=== PATIENT | female | born 1935 | race Caucasian/White ===

== ENCOUNTER → 2016-07-02 | Outpatient (CLI) | payer MEDICARE ==
[~2016-07-02] MED LIST: ACETAMINOPHEN-H1 TA2 PO; AGGRENOX (D1 CAPSULE PO; ALLEGRA ALLERG180 MG OR; AMLO2.5T PO; AMLODIPINE/BENA1 CA2 PO; ASPIRIN 81MG TA81 MG PO; B-COMPLEX-501 CAP PO; BRINTELLIX10 MG PO; BUSPAR 10MG TAB10 MG PO; BUSPAR 5MG TAB5 MG PO; BUSPIRONE HCL10 MG PO; CALCIUM 600600 MG PO; CALTRATE 600 +1 EACH PO; CARDIZEM CD120 MG PO; CEFDINIR 300MG300 MG PO; CIPROFLOXACIN500 MG PO; COUMADIN 2.5MG2.5 MG PO; COUMADIN 5MG TAB5 MG PO; COUMADIN4 MG PO; DETROL LA 2 MG C2 MG PO; FLAGYL500 MG PO; FOLIC ACID0.4 MG PO; HYDROCHLOROTHIA25 M1 PO; HYOSCYAMINE0.125 M4 SL; LASIX20 MG PO; LEVOCETIRIZINE D5 MG PO; LOTREL 10 MG-401 CAP PO; LOTREL 5 MG-201 CAP PO; LOVENOX40 MG/0.4 SC; MECLIZINE 25MG25 MG PO; MECLIZINE HYDRO25 MG PO; METOPROLOL SUC100 MG PO; METOPROLOL SUCC25 M2 PO; MULTI VITAMINS1 TAB PO; NATURE'S BLE1000 MCG PO; NEURONTIN100 MG OR; NORTRIPTYLINE H25 M1 PO; NYSTATIN SU60 ML/BOT PO; OMEGA 31000 MG PO; PRILOSEC OTC20 MG PO; PROZAC20 MG PO; RISPERDAL0.25 MG PO; RISPERIDONE0.5 M1 PO; SOTALOL 80MG TA80 MG PO; TIKOSYN0.125 MG PO; VITAMIN D1000 IU PO; WELLBUTRIN 75MG75 MG PO; WELLBUTRIN SR100 MG PO; XANAX 0.25MG0.25 MG PO; XARELTO20 MG PO; ZANTAC 150150 MG PO
[2016-07-02 20:57] LABS: BUN 32 mg/dL (7-18)
[2016-07-02 20:58] LABS: GFR (ESTIMATED) 43 ML/MIN (59-)
== END ==
LOC: LAB 16:19
PROVIDERS: Thoracic Surgery (Cardiothoracic Vascular Surgery)
DX: R91.1 Solitary pulmonary nodule (principal)

== ENCOUNTER 2017-01-31 10:55 | Day surgery (SDC) | payer MEDICARE ==
[~2017-01-31] VITALS: Ht 157.5 cm; Wt 74.4 kg
--- NOTE | 2017-01-31 12:40 | Operative Note ---
Upper GI Endoscopy Procedure date: 01/31/17 Date of : 37 Procedure:Upper GI Endoscopy Esophagogastroduodenoscopy with cold biopsies Indications: Mrs. Roldan is an 81-year-old female who is here for diagnostic/therapeutic upper endoscopy. 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 Her recent transaminases were normal. She does have a history of ischemic colitis in August 2012. She also has been hospitalized for atrial fibrillation. The patient has had worsened dysphagia and some globus sensation. She also has had some worsened reflux and has been on Zantac 150 mg by mouth twice a day. She has had bloating, belching, early satiety and very mild indigestion. She does take the fiber bowel regimen (MiraLAX plus Citrucel) daily. Performing Provider: Simón Garsia MD Referring Provider: Emiliano Alfredo M.D. Sedation: MAC sedation Procedure: Prior to the procedure, a history and physical exam was performed, and patients medications and allergies were reviewed. The risks and benefits of the procedure and the sedation options and risks were discussed with the patient. All questions were answered and informed consent was obtained. The patient was brought to the procedure room. Patient identification and proposed procedure were verified by the physician and the nurse. The patient was placed in a left lateral decubitus position and the scope was passed under direct vision. Throughout the procedure, the patient's blood pressure, pulse, and oxygen saturations were monitored continuously. The endoscope was introduced through the mouth, and advanced to the second part of duodenum. The upper GI endoscopy was accomplished without difficulty. The patient tolerated the procedure well. Findings: The scope was passed directly into the upper esophagus and advanced to the third portion of the duodenum. The post bulbar duodenum and duodenal bulb were normal with normal mucosa and conniventes. The scope was withdrawn through a normal duodenal bulb and pylorus into the stomach. There was very mild chronic gastritis and minimal portal gastropathy. The remainder of the antrum, body and fundus of the stomach were grossly normal. Upon retroflexion there was a 2 cm small hiatal hernia. There was a polyp in the cardia region of the stomach that was 6 mm and removed via cold biopsy. The scope was then withdrawn into the esophagus. There was evidence of grade A to B reflux esophagitis LA classification. There was no evidence of Pink's esophagus or stricturing. There were tertiary contractions and evidence of mild esophageal dysmotility. There was very faint esophageal varices. The entire esophagus was dilated to 60 [place]/20 mm with a TTS hydrostatic balloon. There was some resistance at the cricopharyngeus/upper esophageal sphincter. The remainder of the esophageal mucosa was normal. Immediate complications: None EBL (ml): 0 Impression: 1. 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 Grade AB reflux esophagitis (LA classification) with 2 cm hiatal hernia 3. Gastric fundic polyp 4. Very minor changes of portal hypertension/faint esophageal varices Recommendations: I will follow-up the biopsies. I would recommend addition of PPI therapies/ omeprazole. at 1240
[2017-01-31 16:01] VITALS: BP 169/82
== END 2017-01-31 13:50 | disposition home or self-care (01) ==
LOC: SDC 10:55
PROVIDERS: Internal Medicine Gastroenterology
PROC: 0D758ZZ Dilation of Esophagus, Via Natural or Artificial Opening Endoscopic (ICD-10-PCS; 2017-01-31)
PROC: 0DB68ZX Excision of Stomach, Via Natural or Artificial Opening Endoscopic, Diagnostic (ICD-10-PCS; principal; 2017-01-31 12:30)
DX: K22.4 Dyskinesia of esophagus (principal); K21.9 Gastro-esophageal reflux disease without esophagitis; K74.60 Unspecified cirrhosis of liver; K55.1 Chronic vascular disorders of intestine; K75.4 Autoimmune hepatitis; K44.9 Diaphragmatic hernia without obstruction or gangrene; K31.7 Polyp of stomach and duodenum; I85.00 Esophageal varices without bleeding; K76.6 Portal hypertension
CPT/HCPCS: C1726

== ENCOUNTER → 2017-03-28 | Outpatient (CLI) | payer MEDICARE ==
--- NOTE | 2017-03-28 19:24 | RADIOLOGY REPORT PS360 ---
PROCEDURE: 2-D M-mode and color Doppler study INDICATIONS FOR THE TEST: Chest pain COPD Heart Murmur Tobacco Smoking Palpitations Fatigue Syncope Edema HypertensionXDiabetes Mellitus Rheumatic Fever SOBXDOE Obesity HyperlipidemiaX Family History HD Additional History PAF,CAD,PACEMAKER PATIENT INFORMATION HEIGHT: 62 WEIGHT:170 GENDER: Female B/P:130/76 2-D/M-MODE INTERPRETATION: 2-D MEASUREMENTS OBSERVED VALUES IN CMS Right Ventricular Dimension (RVDd) 2.6 Interventricular Septum (Thickness)(IVsd) 1.0 Left Ventricular Internal Dimensions(LVIDd) 5.0 Left Ventricular Posterior Wall (Thickness)(LVPWd) .9 Aortic Root 2.7 Aortic Cusp Separation 1.5 Left Atrial Dimensions (LAD) 3.8 2D 1. Left atrium is mildly enlarged, left ventricle is normal size, there is mild concentric left ventricular hypertrophy, visually estimated ejection fraction 55% with no obvious regional wall motion abnormality. 2. The right atrium and right ventricle are normal size and contractility, there is catheter noted in the right atrium and right ventricle. Which is likely a pacemaker lead. 3. The aortic valve is thickened and calcified, leaflet continue to display mobility. 4. The mitral and tricuspid valve are minimally thickened. 5. The pulmonic valve is poorly visualized. 6. No significant pericardial effusion noted DOPPLER INTERROGATION: Doppler interrogation of the aortic, mitral and tricuspid valvular presence of mild aortic, mild mitral and tricuspid regurgitation, calculated right ventricular systolic pressure is 47 mmHg consistent with moderate pulmonary hypertension, diastolic parameters are inconclusive. CONCLUSION: 1. Mildly enlarged left atrium, normal left ventricular size, mild concentric left ventricular hypertrophy, visually estimated ejection fraction 55% with no obvious regional wall motion abnormality. 2. Mild aortic, mild mitral and tricuspid regurgitation, calculated right ventricular systolic pressure 47 mmHg consistent with moderate pulmonary hypertension. 3. No significant pericardial effusion noted.
== END ==
LOC: RT 14:52
DX: R06.02 Shortness of breath (principal); I48.0 Paroxysmal atrial fibrillation

== ENCOUNTER 2017-04-18 08:21 | Observation (INO) | payer MEDICARE ==
[~2017-04-18] VITALS: Ht 157.5 cm; Wt 79.5 kg
[2017-04-18 08:25] VITALS: BP 199/91
--- OUTSIDE RECORDS SUMMARY | 2017-04-18 08:48 | External Medical Summary Rpt | CCD ---
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 [facility] n 435.9 Transient [place] ischemic [facility] 558.9 Colitis [facility] Allergies, Adverse Reactions, Alerts Type Drug Allergy Adverse Reaction to Substance Substance Reaction Severity Cephalosporin Unknown Unknown Penicillin Unknown Unknown SULFA (sulfonamide) Unknown Unknown Cephalexin Unknown Unknown Erythromycin Unknown Unknown Codeine Unknown Unknown Penicillin G Unknown Unknown Trimethoprim Unknown Unknown Sulfamethoxazole Unknown Unknown Medications Na ND Rx Da Fi Fi Am Da Di Ph RX Ph St me C No te ll ll ou ys ag ar # ys at rm s nt no ma ic us Or Da si cy ia de te s n re d LO 00 12 0 No RA 64 -1 ZE 16 3- Lo PA 04 20 ng M 82 13 er 2 5 MG Ac /M ti L ve AL Sa 63 12 0 No li 80 -1 ne 70 3- Lo 10 20 ng Fl 07 13 er us 5 h Ac 10 ti ML ve Sy ri ng e FL 00 07 0 No UO 90 -2 XE 45 4- Lo TI 78 20 ng NE 56 13 er 1 HC Ac L ti 20 ve MG CA PS UL E SO 00 07 0 No DI 40 -2 UM 97 3- Lo 98 20 ng CH 30 13 er LO 9 RI Ac DE ti ve 0. 9% SO YENNI TI ON Sa 63 07 1 No li 80 -2 ne 70 3- Lo 10 20 ng Fl 07 13 er us 5 h Ac 10 ti ML ve Sy ri ng e AG 00 07 0 No GR 59 -2 EN 70 3- Lo OX 00 20 ng 16 13 er 25 0 Ac MG ti -2 ve 00 MG CA PS UL E TY 50 07 1 No LE 58 -2 NO 00 3- Lo L 45 20 ng EX 10 13 er -S 3 TR Ac ti 50 ve [address] ET HY [address] 73 -2 OC 90 3- Lo HL 12 20 ng OR 81 13 er OT 0 HI Ac AZ ti ID ve E 25 MG TA B LI 63 07 1 No SI 73 -2 NO 90 3- Lo DE 35 20 ng IL 01 13 er 0 20 Ac ti MG ve TA BL ET Al 68 07 1 No pr 08 -2 az 40 3- Lo ol 01 20 ng am 80 13 er 1 0. Ac 25 ti MG ve Ta bl et LE 50 07 1 No VA 45 -2 QU 80 3- Lo IN 92 20 ng 01 13 er 25 0 0 Ac MG ti ve TA BL ET TO 00 07 1 No DE 18 -2 OL 61 3- Lo 08 20 ng XL 83 13 er 9 25 Ac ti MG ve TA BL ET RI 50 07 1 No SP 45 -2 ER 80 3- Lo DA 30 20 ng L 10 13 er 0. 4 25 Ac ti MG ve TA BL ET BU 51 07 1 No SP 07 -2 IR 90 3- Lo ON 98 20 ng E 62 13 er HC 0 L Ac 10 ti ve MG TA BL ET PA 51 07 1 No NT 07 -2 OP 90 3- Lo RA 05 20 ng ZO 12 13 er LE 0 Ac SO ti D ve DR 40 MG TA B Po 00 02 1 No ta 24 -2 ss 50 5- Lo iu 05 20 ng m 80 13 er Ch 1 lo Ac ri ti de ve 20 ME Q Ta bl e TY 50 02 1 No LE 58 -2 NO 00 5- Lo L 45 20 ng EX 10 13 er -S 3 TR Ac ti 50 ve [address] ET Me 63 02 1 No tr 73 -2 on 90 5- Lo id 17 20 ng az 61 13 er ol 0 e Ac 50 ti 0M ve G Ta bl et ME 00 02 0 No TR 40 -2 ON 97 3- Lo ID 81 20 ng AZ 12 13 er OL 4 E Ac 50 ti 0 ve MG /1 00 ML SO 00 02 2 No DI 40 -2 UM 97 3- Lo 98 20 ng CH 30 13 er LO 9 RI Ac DE ti ve 0. 9% SO YENNI TI ON Sa 63 02 1 No li 80 -2 ne 70 3- Lo 10 20 ng Fl 07 13 er us 5 h Ac 10 ti ML ve Sy ri ng e GA [address] 27 -2 RO 00 3- Lo GR 44 20 ng AF 53 13 er IN 5 Ac 66 ti -1 ve 0 SO YENNI TI ON ON 00 02 0 No DA 64 -2 NS 16 3- Lo ET 08 20 ng RO 02 13 er N 5 HC Ac L ti 4 ve MG /2 ML AL Me 00 02 0 No th 00 -2 yl 90 3- Lo pr 19 20 ng ed 00 13 er ni 9 so Ac lo ti ne ve So d [facility] in a Mo 00 02 0 No rp 40 -2 hi 91 3- Lo ne 76 20 ng 23 13 er 2M 0 G/ Ac Ml ti ve Sy ri ng e Me 00 02 1 No th 00 -2 yl 90 3- Lo pr 11 20 ng ed 31 13 er ni 2 so Ac lo ti ne ve So d [facility] in a Mo 00 02 0 No rp 40 -2 hi 91 3- Lo ne 76 20 ng 23 13 er 2M 0 G/ Ac Ml ti ve Sy ri ng e AM 51 02 3 No LO 07 -2 DI 90 3- Lo PI 45 20 ng NE 12 13 er 0 BE Ac SY ti LA ve TE 5 MG TA B Fl 00 02 3 No uo 40 -2 xe 60 3- Lo ti 66 20 ng ne 36 13 er 2 20 Ac MG ti ve Ca ps ul e Al 68 02 3 No pr 08 -2 az 40 3- Lo ol 01 20 ng am 80 13 er 1 0. Ac 25 ti MG ve Ta bl et Hy [address] 07 -2 oc 90 3- Lo hl 04 20 ng or 92 13 er ot 0 hi Ac az ti id ve e 25 MG Ta bl e BU 51 02 3 No SP 07 -2 IR 90 3- Lo ON 98 20 ng E 62 13 er HC 0 L Ac 10 ti ve MG TA BL ET Mo 00 02 3 No rp 40 -2 hi 91 3- Lo ne 25 20 ng 83 13 er 4M 0 G/ Ac Ml ti ve Sy ri ng e TO 00 02 3 No DE 18 -2 OL 61 3- Lo 09 20 ng XL 00 13 er 5 50 Ac ti MG ve TA BL ET RI 50 02 3 No SP 45 -2 ER 80 3- Lo DA 30 20 ng L 20 13 er 0. 1 5 Ac MG ti ve TA BL ET Vital Signs 05-18-2013 11:20 Name Value Interpretat Reference Comment ion Range BP 94 mm[Hg] Diastolic BP Systolic 168 mm[Hg] Heart 70 /min Rate/Pulse O2% 98 % Respiratory 20 /min Rate 05-18-2013 10:09 Name Value Interpretat Reference Comment ion Range BP 73 mm[Hg] Diastolic BP Systolic 163 mm[Hg] Heart 78 /min Rate/Pulse Respiratory 18 /min Rate 05-18-2013 09:49 Name Value Interpretat Reference Comment ion Range O2% 99 % 12-27-2012 10:04 Name Value Interpretat Reference Comment ion Range Body 97.9 [degF] Temperature BP 76 mm[Hg] Diastolic BP Systolic 130 mm[Hg] Heart 112 /min Rate/Pulse O2% 96 % Respiratory 18 /min Rate 12-26-2012 06:41 Name Value Interpretat Reference Comment ion Range Height 157.48 cm Weight 73.936 kg Measured 12-26-2012 04:07 Name Value Interpretat Reference Comment ion Range Body 97.6 [degF] Temperature BP 66 mm[Hg] Diastolic BP Systolic 137 mm[Hg] Heart 105 /min Rate/Pulse O2% 96 % Respiratory 16 /min Rate Weight 00 [oz_av] Measured 12-11-2012 13:30 Name Value Interpretat Reference Comment ion Range Body 97.7 [degF] Temperature BP 68 mm[Hg] Diastolic BP Systolic 121 mm[Hg] Heart 111 /min Rate/Pulse O2% 96 % Respiratory 17 /min Rate 12-11-2012 12:20 Name Value Interpretat Reference Comment ion Range BP 97 mm[Hg] Diastolic BP Systolic 135 mm[Hg] Heart 111 /min Rate/Pulse O2% 95 % Respiratory 20 /min Rate 08-01-2012 09:17 Name Value Interpretat Reference Comment ion Range Body 98.4 [degF] Temperature BP 76 mm[Hg] Diastolic BP Systolic 137 mm[Hg] Heart 74 /min Rate/Pulse Respiratory 20 /min Rate 08-01-2012 04:00 Name Value Interpretat Reference Comment ion Range O2% 95 % 07-29-2012 09:00 Name Value Interpretat Reference Comment ion Range Height 157.48 cm Weight 72.576 kg Measured 07-29-2012 06:38 Name Value Interpretat Reference Comment ion Range Body 98.4 [degF] Temperature BP 81 mm[Hg] Diastolic BP Systolic 157 mm[Hg] Heart 84 /min Rate/Pulse O2% 94 % Respiratory 16 /min Rate Weight 0 [oz_av] Measured Results Labs Lab Lab Date Result Refere Interp Status Commen Order Detail nces retati t Range on aPTT PPP (06-08-2016 14:54) Comment: PTT = The equivalent PTT values for the therapeutic range of heparin levels at 0.3 to 0.5 U/ml are 45 to 60 seconds. aPTT 51.9 24.0-31 complet PPP 017 seconds .0 ed 14:54 PT PPP (06-08-2016 14:54) Comment: Therapeutic Ranges for INR:2.0-3.0 (PT 20-30) Comment: 2.5-3.5 (PT 25-34) INR PPP 1.36 complet 017 ed 14:54 PT PPP 15.0 9.6-11. complet 017 Seconds 5 ed 14:54 Bas Metab 2000 Pnl SerPl (06-08-2016 14:54) Comment: [employer] Guidelines Comment: Comment: Stage Description GFR Comment: 1 Normal or High 90+ Comment: 2 Mild decrease 60-89 Comment: 3 Moderate decrease 30-59 Comment: 4 Severe decrease 15-29 Comment: 5 Kidney failure <15 Calcium 9.5 8.7-10. complet 017 mg/dL 4 ed XXX-sCn 14:54 c CO2 26.0 20.0-31 complet SerPl-s 017 mmol/L .0 ed Cnc 14:54 Potassi 4.2 3.5-5.5 complet um 017 mmol/L ed Bld-sCn 14:54 c Sodium 03 138 132-146 complet Bld-sCn 017 mmol/L ed c 14:54 Creat 0.70 0.60-1. complet Bld-mCn 017 mg/dL 30 ed c 14:54 Anion 2 7.0 3.0-11. complet Gap3 017 mmol/L 0 ed SerPl-s 14:54 Cnc BUN/Cre 25.7 7.0-25. complet at 017 0 ed SerPl 14:54 GFR/BSA 81 >60 complet .pred 017 mL/min/ ed SerPl 14:54 1.73 MDRD-Ar VRat Chlorid 105 99-109 complet e 017 mmol/L ed SerPl-s 14:54 Cnc BUN 18 9-23 complet Bld-mCn 017 mg/dL ed c 14:54 Glucose 90 70-100 complet 017 mg/dL ed Bld-mCn 14:54 c Mg Ionized SerPl-mCnc (06-08-2016 14:54) Magnesi 2.3 1.3-2.7 complet um 017 mg/dL ed SerPl-m 14:54 Cnc Ca-I Bld-mCnc (06-08-2016 14:54) Ca-I 1.22 1.12-1. complet SerPl 017 mmol/L 32 ed ISE-mCn 14:54 c Hgb A1c Bld (05-28-2016 08:01) Comment: The [employer] recommends maintenance of Hemoglobin A1C at 7.0% or lower. Goals for Hemoglobin A1C reduction may need to be modified if hypoglycemia is a problem. Hgb A1c 5.10 % 4.80-5. complet MFr 016 60 ed Bld 08:01 Bas Metab 2000 Pnl SerPl (05-28-2016 08:01) Comment: [employer] Guidelines Comment: Comment: Stage Description GFR Comment: 1 Normal or High 90+ Comment: 2 Mild decrease 60-89 Comment: 3 Moderate decrease 30-59 Comment: 4 Severe decrease 15-29 Comment: 5 Kidney failure <15 Anion 6.0 3.0-11. complet Gap3 016 mmol/L 0 ed SerPl-s 08:01 Cnc BUN/Cre 26.3 7.0-25. complet at 016 0 ed SerPl 08:01 GFR/BSA 69 >60 complet .pred 016 mL/min/ ed SerPl 08:01 1.73 MDRD-Ar VRat Calcium 9.7 8.7-10. complet 016 mg/dL 4 ed XXX-sCn 08:01 c CO2 26.0 20.0-31 complet SerPl-s 016 mmol/L .0 ed Cnc 08:01 Chlorid 05-28-2 105 99-109 complet e 016 mmol/L ed SerPl-s 08:01 Cnc Potassi 23-2 4.0 3.5-5.5 complet um 016 mmol/L ed Bld-sCn 08:01 c Sodium 23-2 137 132-146 complet Bld-sCn 016 mmol/L ed c 08:01 Creat 23-2 0.80 0.60-1. complet Bld-mCn 016 mg/dL 30 ed c 08:01 BUN -23-2 21 9-23 complet Bld-mCn 016 mg/dL ed c 08:01 Glucose 05-28-2 97 70-100 complet 016 mg/dL ed Bld-mCn 08:01 c CBC (hemogram) Bld Auto (05-28-2016 08:01) Platele 23-2 260 150-450 complet t # Bld 016 10*3/mm ed Auto 08:01 3 PMV Bld 05-28-2 10.6 fL 6.0-12. complet Auto 016 0 ed 08:01 RDW RBC -23-2 46.2 fl 37.0-54 complet Auto 016 .0 ed 08:01 RDW RBC 23-2 13.3 % 11.3-14 complet 016 .5 ed Auto-Rt 08:01 o MCHC 23-2 33.7 32.0-36 complet RBC 016 g/dL .0 ed Auto-mC 08:01 nc MCH RBC 23-2 32.1 pg 27.0-31 complet Qn 016 .0 ed Auto 08:01 MCV RBC 23-2 95.2 fL 80.0-99 complet Auto 016 .0 ed 08:01 Hct VFr 23-2 41.2 % 34.5-44 complet Bld 016 .0 ed Auto 08:01 Hgb -23-2 13.9 11.5-15 complet Bld-mCn 016 g/dL .5 ed c 08:01 RBC # 12-23-2 4.33 3.89-5. complet Bld 016 10*6/mm 14 ed Auto 08:01 3 WBC -23-2 8.30 3.50-10 complet nRBC 016 10*3/mm .80 ed cor # 08:01 3 Bld COMPREHENSIVE METABOLIC PANEL (05-18-2013 09:30) Glucose 05-18-2 108 74-106 complet 013 mg/dL ed Bld-mCn 09:30 c BUN 05-18-2 14 7-18 complet Bld-mCn 013 mg/dL ed c 09:30 Creat 13-2 0.8 0.6-1.0 complet SerPl-m 013 mg/dL ed Cnc 09:30 Creat 05-18-2 68 50-200 complet Cl 013 ML/MIN ed predict 09:30 ed SerPl C-G-vRa te GFR/BSA 05-18-2 70 59- complet .pred 013 ML/MIN ed SerPl 09:30 Schwart z-vRate Sodium 05-18- 136 136-145 complet SerPl-s 013 mmoL/L ed Cnc 09:30 Potassi 05-18-2 3.6 3.5-5.1 complet um 013 mmoL/L ed SerPl-s 09:30 Cnc Chlorid 05-18-2 100 98-107 complet e 013 mmoL/L ed SerPl-s 09:30 Cnc CO2 05-18-2 28 21.0-32 complet SerPl-s 013 mmoL/L .0 ed Cnc 09:30 Calcium -13-2 9.3 8.5-10. complet 013 mg/dL 1 ed SerPl-m 09:30 Cnc Prot -13-2 7.7 6.4-8.2 complet SerPl-m 013 gm/dL ed Cnc 09:30 Albumin -13-2 4.0 3.4-5.0 complet 013 gm/dL ed SerPl-m 09:30 Cnc Globuli -13-2 3.7 1.3-3.2 complet n 013 gm/dL ed Ser-mCn 09:30 c Albumin -13-2 1.1 UNK 1.1-1.8 complet /Glob 013 ed SerPl-m 09:30 Rto Bilirub 13-2 0.4 0.2-1.0 complet 013 mg/dL ed SerPl-m 09:30 Cnc AST -13-2 23 U/L 15-37 complet SerPl-c 013 ed Cnc 09:30 ALT -13-2 49 U/L 30-65 complet SerPl-c 013 ed Cnc 09:30 ALP 12-13-2 88 U/L 50-136 complet SerPl-c 013 ed Cnc 09:30 PROTIME/INR (05-18-2013 09:30) PROTHRO 12-13-2 14.8 9.9-11. complet MBIN 013 SECONDS 6 ed TIME 09:30 INR Bld 12-13-2 1.38 0.9-1.1 complet 013 UNK ed 09:30 CBC with AUTO DIFF (05-18-2013 09:30) WBC # 12-13-2 5.2 4.8-10. complet Bld 013 K/MM3 8 ed Auto 09:30 RBC # 12-13-2 4.91 4.2-5.4 complet Bld 013 M/mm3 ed Auto 09:30 Hgb 12-13-2 15.2 12.2-16 complet Bld-mCn 013 g/dL .2 ed c 09:30 Hct Fr 12-13-2 43.4 % 37.0-47 complet Bld 013 .0 ed 09:30 MCV RBC 12-13-2 88.4 fl 82.2-97 complet 013 .8 ed 09:30 MCH RBC 12-13-2 31.0 pg 27-31.2 complet Qn 013 ed Auto 09:30 MEAN 12-13-2 35.1 31.8-35 complet CORPUSC 013 g/dl .4 ed ULAR 09:30 HGB CONC RDW RBC 12-13-2 14.4 % 11.5-17 complet Auto 013 .5 ed 09:30 Platele 12-13-2 245 142-424 complet t Bld 013 K/mm3 ed Ql 09:30 Manual MEAN 12-13-2 7.6 fl 7.4-10. complet PLATELE 013 4 ed T 09:30 VOLUME Granulo 12-13-2 69.7 % 37.0-80 complet cytes 013 .0 ed Fr Bld 09:30 Auto LYMPH % 12-13-2 20.3 % 10-50.0 complet 013 ed 09:30 Monocyt 12-13-2 6.5 % 1.7-9.3 complet es Fr 013 ed Bld 09:30 Auto Eosinop 12-13-2 3.0 % 0.1-12. complet hil Fr 013 0 ed Bld 09:30 Auto Basophi 12-13-2 0.5 % 0.1-2.0 complet ls Fr 013 ed Bld 09:30 Auto Granulo 12-13-2 3.6 1.8-7.8 complet cytes # 013 K/mm3 ed Bld 09:30 Auto Lymphoc 12-13-2 1.1 0.7-4.5 complet ytes Fr 013 K/mm3 ed Bld 09:30 Auto Monocyt 12-13-2 0.3 0.1-1.0 complet es # 013 K/mm3 ed Bld 09:30 Auto Eosinop 12-13-2 0.2 0.0-0.4 complet hil # 013 K/mm3 ed Bld 09:30 Auto Basophi 12-13-2 0.0 0-0.2 complet ls # 013 K/MM3 ed Bld 09:30 Auto BASIC METABOLIC PANEL (12-27-2012 05:10) Glucose 92 74-106 complet 013 mg/dL ed Bld-mCn 05:10 c BUN 20 7-18 complet Bld-mCn 013 mg/dL ed c 05:10 Creat 1.0 0.6-1.0 complet SerPl-m 013 mg/dL ed Cnc 05:10 ESTIMAT 55 50-200 complet ED 013 ML/MIN ed CREATIN 05:10 INE CLEARAN CE GFR 54 59- complet (ESTIMA 013 ML/MIN ed LUIS) 05:10 Sodium 138 136-145 complet SerPl-s 013 mmoL/L ed Cnc 05:10 Potassi 4.2 3.5-5.1 complet um 013 mmoL/L ed SerPl-s 05:10 Cnc Chlorid 102 98-107 complet e 013 mmoL/L ed SerPl-s 05:10 Cnc CO2 26 21.0-32 complet SerPl-s 013 mmoL/L .0 ed Cnc 05:10 Calcium 9.1 8.5-10. complet 013 mg/dL 1 ed SerPl-m 05:10 Cnc Albumin SerPl-mCnc (12-27-2012 05:10) Albumin 3.7 3.4-5.0 complet 013 gm/dL ed SerPl-m 05:10 Cnc CBC with AUTO DIFF (12-27-2012 05:10) WBC # 07-24-2 6.2 4.8-10. complet Bld 013 K/MM3 8 ed Auto 05:10 RBC # -24-2 4.82 4.2-5.4 complet Bld 013 M/mm3 ed Auto 05:10 Hgb 24-2 14.1 12.2-16 complet Bld-mCn 013 g/dL .2 ed c 05:10 Hct Fr 12-27-2 42.3 % 37.0-47 complet Bld 013 .0 ed 05:10 MCV RBC 24-2 87.8 fl 82.2-97 complet 013 .8 ed 05:10 MCH RBC 12-27-2 29.1 pg 27-31.2 complet Qn 013 ed Auto 05:10 MEAN 12-27-2 33.2 31.8-35 complet CORPUSC 013 g/dl .4 ed ULAR 05:10 HGB CONC RDW RBC 12-27-2 13.3 % 11.5-17 complet Auto 013 .5 ed 05:10 Platele -24-2 226 142-424 complet t Bld 013 K/mm3 ed Ql 05:10 Manual MEAN 12-27-2 8.0 fl 7.4-10. complet PLATELE 013 4 ed T 05:10 VOLUME Granulo 24-2 63.5 % 37.0-80 complet cytes 013 .0 ed Fr Bld 05:10 Auto LYMPH % 24-2 22.4 % 10-50.0 complet 013 ed 05:10 Monocyt -24-2 9.4 % 1.7-9.3 complet es Fr 013 ed Bld 05:10 Auto Eosinop -24-2 4.2 % 0.1-12. complet hil Fr 013 0 ed Bld 05:10 Auto Basophi -24-2 0.5 % 0.1-2.0 complet ls Fr 013 ed Bld 05:10 Auto Granulo 07-24-2 4.0 1.8-7.8 complet cytes # 013 K/mm3 ed Bld 05:10 Auto Lymphoc -24-2 1.4 0.7-4.5 complet ytes Fr 013 K/mm3 ed Bld 05:10 Auto Monocyt 07-24-2 0.6 0.1-1.0 complet es # 013 K/mm3 ed Bld 05:10 Auto Eosinop 12-27-2 0.3 0.0-0.4 complet hil # 013 K/mm3 ed Bld 05:10 Auto Basophi 12-27-2 0.0 0-0.2 complet ls # 013 K/MM3 ed Bld 05:10 Auto COMPREHENSIVE METABOLIC PANEL (12-26-2012 05:00) Glucose 99 74-106 complet 013 mg/dL ed Bld-mCn 05:00 c BUN 22 7-18 complet Bld-mCn 013 mg/dL ed c 05:00 Creat 1.1 0.6-1.0 complet SerPl-m 013 mg/dL ed Cnc 05:00 ESTIMAT 50 50-200 complet ED 013 ML/MIN ed CREATIN 05:00 INE CLEARAN CE GFR 48 59- complet (ESTIMA 013 ML/MIN ed LUIS) 05:00 Sodium 136 136-145 complet SerPl-s 013 mmoL/L ed Cnc 05:00 Potassi 4.0 3.5-5.1 complet um 013 mmoL/L ed SerPl-s 05:00 Cnc Chlorid 103 98-107 complet e 013 mmoL/L ed SerPl-s 05:00 Cnc CO2 25 21.0-32 complet SerPl-s 013 mmoL/L .0 ed Cnc 05:00 Calcium 9.0 8.5-10. complet 013 mg/dL 1 ed SerPl-m 05:00 Cnc Prot 6.6 6.4-8.2 complet SerPl-m 013 gm/dL ed Cnc 05:00 Albumin 3.5 3.4-5.0 complet 013 gm/dL ed SerPl-m 05:00 Cnc Globuli 3.1 1.3-3.2 complet n 013 gm/dL ed Ser-mCn 05:00 c Albumin 1.1 UNK 1.1-1.8 complet /Glob 013 ed SerPl-m 05:00 Rto Bilirub 0.3 0.2-1.0 complet 013 mg/dL ed SerPl-m 05:00 Cnc AST 14 U/L 15-37 complet SerPl-c 013 ed Cnc 05:00 ALT 33 U/L 30-65 complet SerPl-c 013 ed Cnc 05:00 ALP 131 U/L 50-136 complet SerPl-c 013 ed Cnc 05:00 LIPID PROFILE (12-26-2012 05:00) Cholest 12-26-2 193 Less complet 013 mg/dL than ed SerPl-m 05:00 200 Cnc HDLc 33.0 40-60 complet SerPl-m 013 MG/DL ed Cnc 05:00 LDLc 107.2 0-130 complet SerPl 013 mg/dL ed Calc-mC 05:00 nc VLDL 52.8 0-40 complet CHOLEST 013 UNK ed CÉSAR 05:00 Trigl 264 30-200 complet SerPl-m 013 mg/dL ed Cnc 05:00 PROTIME/INR (12-26-2012 05:00) PROTHRO 12-26-2 10.7 9.9-11. complet MBIN 013 SECONDS 6 ed TIME 05:00 INR Bld 1.00 0.9-1.1 complet 013 UNK ed 05:00 ACT PARTIAL THROMBO TIME (12-26-2012 05:00) ACT 27.2 25.3-32 complet PARTIAL 013 SECONDS .0 ed 05:00 THROMBO TIME CBC with AUTO DIFF (12-26-2012 05:00) WBC # 12-26-2 5.1 4.8-10. complet Bld 013 K/MM3 8 ed Auto 05:00 RBC # 12-26-2 4.54 4.2-5.4 complet Bld 013 M/mm3 ed Auto 05:00 Hgb 13.2 12.2-16 complet Bld-mCn 013 g/dL .2 ed c 05:00 Hct Fr 39.9 % 37.0-47 complet Bld 013 .0 ed 05:00 MCV RBC 88.0 fl 82.2-97 complet 013 .8 ed 05:00 MCH RBC 07-23-2 29.2 pg 27-31.2 complet Qn 013 ed Auto 05:00 MEAN 07-23-2 33.1 31.8-35 complet CORPUSC 013 g/dl .4 ed ULAR 05:00 HGB CONC RDW RBC 0723-2 13.2 % 11.5-17 complet Auto 013 .5 ed 05:00 Platele 07-23-2 204 142-424 complet t Bld 013 K/mm3 ed Ql 05:00 Manual MEAN 23-2 8.2 fl 7.4-10. complet PLATELE 013 4 ed T 05:00 VOLUME Granulo 07-23-2 56.3 % 37.0-80 complet cytes 013 .0 ed Fr Bld 05:00 Auto LYMPH % 07-23-2 27.5 % 10-50.0 complet 013 ed 05:00 Monocyt 07-23-2 10.2 % 1.7-9.3 complet es Fr 013 ed Bld 05:00 Auto Eosinop 07-23-2 5.3 % 0.1-12. complet hil Fr 013 0 ed Bld 05:00 Auto Basophi 07-23-2 0.6 % 0.1-2.0 complet ls Fr 013 ed Bld 05:00 Auto Granulo 07-23-2 2.9 1.8-7.8 complet cytes # 013 K/mm3 ed Bld 05:00 Auto Lymphoc 07-23-2 1.4 0.7-4.5 complet ytes Fr 013 K/mm3 ed Bld 05:00 Auto Monocyt 07-23-2 0.5 0.1-1.0 complet es # 013 K/mm3 ed Bld 05:00 Auto Eosinop 07-23-2 0.3 0.0-0.4 complet hil # 013 K/mm3 ed Bld 05:00 Auto Basophi 07-23-2 0.0 0-0.2 complet ls # 013 K/MM3 ed Bld 05:00 Auto BASIC METABOLIC PANEL (08-01-2012 06:25) Glucose 86 74-106 complet 013 mg/dL ed Bld-mCn 06:25 c BUN 16 7-18 complet Bld-mCn 013 mg/dL ed c 06:25 Creat 02-26-2 0.8 0.6-1.0 complet SerPl-m 013 mg/dL ed Cnc 06:25 ESTIMAT 08-01-2 70 50-200 complet ED 013 ML/MIN ed CREATIN 06:25 INE CLEARAN CE GFR 70 59- complet (ESTIMA 013 ML/MIN ed LUIS) 06:25 Sodium 08-01-2 138 136-145 complet SerPl-s 013 mmoL/L ed Cnc 06:25 Potassi 2 3.0 3.5-5.1 complet um 013 mmoL/L ed SerPl-s 06:25 Cnc Chlorid 102 98-107 complet e 013 mmoL/L ed SerPl-s 06:25 Cnc CO2 2 30 21.0-32 complet SerPl-s 013 mmoL/L .0 ed Cnc 06:25 Calcium 08-01-2 8.4 8.5-10. complet 013 mg/dL 1 ed SerPl-m 06:25 Cnc CBC with AUTO DIFF (08-01-2012 06:25) WBC # --2 10.9 4.8-10. complet Bld 013 K/MM3 8 ed Auto 06:25 RBC # 08-01-2 4.33 4.2-5.4 complet Bld 013 M/mm3 ed Auto 06:25 Hgb 08-01-2 12.5 12.2-16 complet Bld-mCn 013 g/dL .2 ed c 06:25 Hct Fr 08-01-2 37.5 % 37.0-47 complet Bld 013 .0 ed 06:25 MCV RBC 08-01-2 86.6 fl 82.2-97 complet 013 .8 ed 06:25 MCH RBC 08-01-2 29.0 pg 27-31.2 complet Qn 013 ed Auto 06:25 MEAN 08-01-2 33.5 31.8-35 complet CORPUSC 013 g/dl .4 ed ULAR 06:25 HGB CONC RDW RBC 08-01-2 13.2 % 11.5-17 complet Auto 013 .5 ed 06:25 Platele 08-01-2 199 142-424 complet t Bld 013 K/mm3 ed Ql 06:25 Manual MEAN 08-01-2 8.0 fl 7.4-10. complet PLATELE 013 4 ed T 06:25 VOLUME Granulo 02-26-2 77.2 % 37.0-80 complet cytes 013 .0 ed Fr Bld 06:25 Auto LYMPH % 02-26-2 12.7 % 10-50.0 complet 013 ed 06:25 Monocyt 02-26-2 9.1 % 1.7-9.3 complet es Fr 013 ed Bld 06:25 Auto Eosinop 02-26-2 0.8 % 0.1-12. complet hil Fr 013 0 ed Bld 06:25 Auto Basophi 02-26-2 0.1 % 0.1-2.0 complet ls Fr 013 ed Bld 06:25 Auto Granulo 02-26-2 8.4 1.8-7.8 complet cytes # 013 K/mm3 ed Bld 06:25 Auto Lymphoc -26-2 1.4 0.7-4.5 complet ytes Fr 013 K/mm3 ed Bld 06:25 Auto Monocyt 02-26-2 1.0 0.1-1.0 complet es # 013 K/mm3 ed Bld 06:25 Auto Eosinop -26-2 0.1 0.0-0.4 complet hil # 013 K/mm3 ed Bld 06:25 Auto Basophi 02-26-2 0.0 0-0.2 complet ls # 013 K/MM3 ed Bld 06:25 Auto BASIC METABOLIC PANEL (07-31-2012 06:48) Glucose 89 74-106 complet 013 mg/dL ed Bld-mCn 06:48 c BUN 2 17 7-18 complet Bld-mCn 013 mg/dL ed c 06:48 Creat 07-31-2 0.9 0.6-1.0 complet SerPl-m 013 mg/dL ed Cnc 06:48 ESTIMAT 07-31-2 62 50-200 complet ED 013 ML/MIN ed CREATIN 06:48 INE CLEARAN CE GFR 61 59- complet (ESTIMA 013 ML/MIN ed LUIS) 06:48 Sodium 07-31- 138 136-145 complet SerPl-s 013 mmoL/L ed Cnc 06:48 Potassi 07-31-2 3.1 3.5-5.1 complet um 013 mmoL/L ed SerPl-s 06:48 Cnc Chlorid 104 98-107 complet e 013 mmoL/L ed SerPl-s 06:48 Cnc CO2 2 28 21.0-32 complet SerPl-s 013 mmoL/L .0 ed Cnc 06:48 Calcium 07-31-2 8.4 8.5-10. complet 013 mg/dL 1 ed SerPl-m 06:48 Cnc CBC with AUTO DIFF (07-31-2012 06:48) WBC # 02-25-2 16.4 4.8-10. complet Bld 013 K/MM3 8 ed Auto 06:48 RBC # 25-2 4.48 4.2-5.4 complet Bld 013 M/mm3 ed Auto 06:48 Hgb 07-31-2 13.0 12.2-16 complet Bld-mCn 013 g/dL .2 ed c 06:48 Hct Fr 38.5 % 37.0-47 complet Bld 013 .0 ed 06:48 MCV RBC 2 86.0 fl 82.2-97 complet 013 .8 ed 06:48 MCH RBC 07-31-2 29.0 pg 27-31.2 complet Qn 013 ed Auto 06:48 MEAN 2 33.7 31.8-35 complet CORPUSC 013 g/dl .4 ed ULAR 06:48 HGB CONC RDW RBC 07-31-2 13.3 % 11.5-17 complet Auto 013 .5 ed 06:48 Platele 07-31-2 194 142-424 complet t Bld 013 K/mm3 ed Ql 06:48 Manual MEAN 2 7.8 fl 7.4-10. complet PLATELE 013 4 ed T 06:48 VOLUME Granulo 07-31-2 84.8 % 37.0-80 complet cytes 013 .0 ed Fr Bld 06:48 Auto LYMPH % 07-31-2 8.2 % 10-50.0 complet 013 ed 06:48 Monocyt 25-2 6.7 % 1.7-9.3 complet es Fr 013 ed Bld 06:48 Auto Eosinop -25-2 0.3 % 0.1-12. complet hil Fr 013 0 ed Bld 06:48 Auto Basophi 07-31-2 0.0 % 0.1-2.0 complet ls Fr 013 ed Bld 06:48 Auto Granulo 2 13.9 1.8-7.8 complet cytes # 013 K/mm3 ed Bld 06:48 Auto Lymphoc 2 1.4 0.7-4.5 complet ytes Fr 013 K/mm3 ed Bld 06:48 Auto Monocyt 07-31-2 1.1 0.1-1.0 complet es # 013 K/mm3 ed Bld 06:48 Auto Eosinop 07-31-2 0.1 0.0-0.4 complet hil # 013 K/mm3 ed Bld 06:48 Auto Basophi 07-31-2 0.0 0-0.2 complet ls # 013 K/MM3 ed Bld 06:48 Auto C dif Tox A+B Stl Ql (07-30-2012 13:50) C dif NOT NOT complet Tox A+B 013 DETECTE DETECTE ed Stl Ql 13:50 D BASIC METABOLIC PANEL (07-30-2012 06:30) Glucose 139 74-106 complet 013 mg/dL ed Bld-mCn 06:30 c BUN 13 7-18 complet Bld-mCn 013 mg/dL ed c 06:30 Creat 0.8 0.6-1.0 complet SerPl-m 013 mg/dL ed Cnc 06:30 ESTIMAT 07-30- 70 50-200 complet ED 013 ML/MIN ed CREATIN 06:30 INE CLEARAN CE GFR 70 59- complet (ESTIMA 013 ML/MIN ed LUIS) 06:30 Sodium 07-30-2 138 136-145 complet SerPl-s 013 mmoL/L ed Cnc 06:30 Potassi 07-30-2 3.6 3.5-5.1 complet um 013 mmoL/L ed SerPl-s 06:30 Cnc Chlorid 07-30- 102 98-107 complet e 013 mmoL/L ed SerPl-s 06:30 Cnc CO2 07-30-2 26 21.0-32 complet SerPl-s 013 mmoL/L .0 ed Cnc 06:30 Calcium 07-30-2 8.4 8.5-10. complet 013 mg/dL 1 ed SerPl-m 06:30 Cnc CBC with AUTO DIFF (07-30-2012 06:30) WBC # 02-24-2 14.3 4.8-10. complet Bld 013 K/MM3 8 ed Auto 06:30 RBC # 02-24-2 4.54 4.2-5.4 complet Bld 013 M/mm3 ed Auto 06:30 Hgb -24-2 13.0 12.2-16 complet Bld-mCn 013 g/dL .2 ed c 06:30 Hct Fr 24-2 39.2 % 37.0-47 complet Bld 013 .0 ed 06:30 MCV RBC 24-2 86.2 fl 82.2-97 complet 013 .8 ed 06:30 MCH RBC 07-30-2 28.6 pg 27-31.2 complet Qn 013 ed Auto 06:30 MEAN 07-30-2 33.2 31.8-35 complet CORPUSC 013 g/dl .4 ed ULAR 06:30 HGB CONC RDW RBC 07-30-2 13.4 % 11.5-17 complet Auto 013 .5 ed 06:30 Platele -24-2 182 142-424 complet t Bld 013 K/mm3 ed Ql 06:30 Manual MEAN 24-2 8.1 fl 7.4-10. complet PLATELE 013 4 ed T 06:30 VOLUME Granulo -24-2 92.1 % 37.0-80 complet cytes 013 .0 ed Fr Bld 06:30 Auto LYMPH % -24-2 4.6 % 10-50.0 complet 013 ed 06:30 Monocyt 02-24-2 3.2 % 1.7-9.3 complet es Fr 013 ed Bld 06:30 Auto Eosinop 02-24-2 0.2 % 0.1-12. complet hil Fr 013 0 ed Bld 06:30 Auto Basophi 02-24-2 0.0 % 0.1-2.0 complet ls Fr 013 ed Bld 06:30 Auto Granulo 02-24-2 13.2 1.8-7.8 complet cytes # 013 K/mm3 ed Bld 06:30 Auto Lymphoc 02-24-2 0.7 0.7-4.5 complet ytes Fr 013 K/mm3 ed Bld 06:30 Auto Monocyt 02-24-2 0.5 0.1-1.0 complet es # 013 K/mm3 ed Bld 06:30 Auto Eosinop -24-2 0.0 0.0-0.4 complet hil # 013 K/mm3 ed Bld 06:30 Auto Basophi 24-2 0.0 0-0.2 complet ls # 013 K/MM3 ed Bld 06:30 Auto ESR Bld Qn 15M (07-30-2012 06:30) ESR Bld 07-30-2 10 0-30 complet Qn 15M 013 mm/hr ed 06:30 OCCULT BLOOD (07-29-2012 07:25) Hemocul 07-29-2 POSITIV NEG complet t sp1 013 E ed Stl Ql 07:25 COMPREHENSIVE METABOLIC PANEL (07-29-2012 06:50) Glucose 07-29-2 144 74-106 complet 013 mg/dL ed Bld-mCn 06:50 c BUN 07-29-2 25 7-18 complet Bld-mCn 013 mg/dL ed c 06:50 Creat 07-29-2 1.4 0.6-1.0 complet SerPl-m 013 mg/dL ed Cnc 06:50 ESTIMAT 23-2 38 50-200 complet ED 013 ML/MIN ed CREATIN 06:50 INE CLEARAN CE GFR 07-29-2 37 59- complet (ESTIMA 013 ML/MIN ed LUIS) 06:50 Sodium 23-2 136 136-145 complet SerPl-s 013 mmoL/L ed Cnc 06:50 Potassi 23-2 3.8 3.5-5.1 complet um 013 mmoL/L ed SerPl-s 06:50 Cnc Chlorid 07-29-2 101 98-107 complet e 013 mmoL/L ed SerPl-s 06:50 Cnc CO2 23-2 24 21.0-32 complet SerPl-s 013 mmoL/L .0 ed Cnc 06:50 Calcium -23-2 9.5 8.5-10. complet 013 mg/dL 1 ed SerPl-m 06:50 Cnc Prot -23-2 7.7 6.4-8.2 complet SerPl-m 013 gm/dL ed Cnc 06:50 Albumin -23-2 4.0 3.4-5.0 complet 013 gm/dL ed SerPl-m 06:50 Cnc Globuli 02-23-2 3.7 1.3-3.2 complet n 013 gm/dL ed Ser-mCn 06:50 c Albumin 02-23-2 1.1 UNK 1.1-1.8 complet /Glob 013 ed SerPl-m 06:50 Rto Bilirub 02-23-2 0.5 0.2-1.0 complet 013 mg/dL ed SerPl-m 06:50 Cnc AST 02-23-2 19 U/L 15-37 complet SerPl-c 013 ed Cnc 06:50 ALT 02-23-2 37 U/L 30-65 complet SerPl-c 013 ed Cnc 06:50 ALP 02-23-2 114 U/L 50-136 complet SerPl-c 013 ed Cnc 06:50 Amylase SerPl-cCnc (07-29-2012 06:50) Amylase 02-23-2 117 U/L 25-115 complet 013 ed SerPl-c 06:50 Cnc LIPASE (07-29-2012 06:50) LIPASE 02-23-2 132 U/L 73-393 complet 013 ed 06:50 CBC with AUTO DIFF (07-29-2012 06:50) WBC # 02-23-2 11.4 4.8-10. complet Bld 013 K/MM3 8 ed Auto 06:50 RBC # 02-23-2 5.19 4.2-5.4 complet Bld 013 M/mm3 ed Auto 06:50 Hgb 02-23-2 15.0 12.2-16 complet Bld-mCn 013 g/dL .2 ed c 06:50 Hct Fr 02-23-2 44.7 % 37.0-47 complet Bld 013 .0 ed 06:50 MCV RBC 02-23-2 86.1 fl 82.2-97 complet 013 .8 ed 06:50 MCH RBC 02-23-2 29.0 pg 27-31.2 complet Qn 013 ed Auto 06:50 MEAN 02-23-2 33.6 31.8-35 complet CORPUSC 013 g/dl .4 ed ULAR 06:50 HGB CONC RDW RBC 02-23-2 13.5 % 11.5-17 complet Auto 013 .5 ed 06:50 Platele 02-23-2 282 142-424 complet t Bld 013 K/mm3 ed Ql 06:50 Manual MEAN 02-23-2 7.6 fl 7.4-10. complet PLATELE 013 4 ed T 06:50 VOLUME Granulo 02-23-2 86.7 % 37.0-80 complet cytes 013 .0 ed Fr Bld 06:50 Auto LYMPH % 02-23-2 8.1 % 10-50.0 complet 013 ed 06:50 Monocyt 02-23-2 4.5 % 1.7-9.3 complet es Fr 013 ed Bld 06:50 Auto Eosinop 02-23-2 0.6 % 0.1-12. complet hil Fr 013 0 ed Bld 06:50 Auto Basophi 02-23-2 0.1 % 0.1-2.0 complet ls Fr 013 ed Bld 06:50 Auto Granulo 02-23-2 9.9 1.8-7.8 complet cytes # 013 K/mm3 ed Bld 06:50 Auto Lymphoc 02-23-2 0.9 0.7-4.5 complet ytes Fr 013 K/mm3 ed Bld 06:50 Auto Monocyt 02-23-2 0.5 0.1-1.0 complet es # 013 K/mm3 ed Bld 06:50 Auto Eosinop 02-23-2 0.1 0.0-0.4 complet hil # 013 K/mm3 ed Bld 06:50 Auto Basophi 02-23-2 0.0 0-0.2 complet ls # 013 K/MM3 ed Bld 06:50 Auto Encounters Encounter Start End Date Code Location Performer Type Date Emergency ALBERTO FAUSTIN DO (ER) 3 09:42 3 11:26 [facility] Inpatient CINDY Alfredo MD ([place]) 3 04:47 3 09:30 [facility] Emergency ALBERTO Cheek MD (ER) 3 11:45 3 13:31 [facility] Inpatient CINDY Alfredo MD ([place]) 3 06:54 3 09:40 [facility]
--- OUTSIDE RECORDS SUMMARY | 2017-04-18 08:48 | External Medical Summary Rpt | CCD ---
Author Author , RACHELLE BUSH Address Unknown Phone [email or web address] Care Team Providers Care Die Fitter Name Role Phone [facility] Unavailable Unavailable Hospital, [facility] Emiliano Alfredo MD, Unavailable Unavailable Emiliano Alfredo MD Purpose Continuity of Care Document - 07-29-2012 through 2016 Problems Code Diagnosis DOS Provider Status 272.1 [facility] [place] [facility]1 Benign [facility] hypertensio [facility] n 435.9 Transient [place] ischemic [facility] 558.9 Colitis [facility] Allergies, Adverse Reactions, Alerts Type Drug Allergy [...] SI 73 -2 NO 90 3- Lo PA 35 20 ng [place] 01 13 er [...] BL ET TO 00 07 1 No PA 18 -2 OL 61 3- Lo 08 [...] ng e TO 00 02 3 No PA 18 -2 OL 61 3- Lo 09 [...] Hgb A1c Bld (05-28-2016 08:01) Comment: The [place] [employer] recommends maintenance of Hemoglobin A1C [...] FAUSTIN DO (ER) 3 09:42 3 11:26 [facility] Inpatient CINDY Alfredo MD ([place]) 3 04:47 3 09:30 [facility] Emergency ALBERTO Cheek MD (ER) 3 11:45 3 13:31 [facility] Inpatient CINDY Alfredo MD ([place]) 3 06:54 3 09:40 [facility]
--- OUTSIDE RECORDS SUMMARY | 2017-04-18 08:50 | External Medical Summary Rpt ---
Author Author RACHELLE Krause, RACHELLE [employer] Organization [employer] Address Unknown Phone Unavailable Results Urea nitrogen [Mass/volume] in Serum or Plasma Observa Value Referen Units Interpr Notes Date tion ce etation Range Urea 7 - 18 mg/dL High No Nov 22 nitrogen informati 2016 9:27 [Mass/vol on in AM ume] in source Serum or data Plasma CREATININE Observa Value Referen Units Interpr Notes Date tion ce etation Range Creatinin 0.55 - mg/dL Normal No Nov 22 e 1.02 informati 2016 9:27 [Mass/vol on in AM ume] in source Serum or data Plasma Estimated 59- ML/MIN Low REFERENCE Nov 22 RANGE: 2017 9:27 glomerula >60 AM r ML/MIN/1. filtratio 73 SQUARE n rate METERSIf (GF this patient is -A merican, then multiply theresult by 1.210.
--- OUTSIDE RECORDS SUMMARY | 2017-04-18 08:50 | External Medical Summary Rpt | CCD ---
Author Author , RACHELLE BUSH Address Unknown Phone [email or web address] Immunization Name Date Rout CVX Reac Dose Comm Prov Is Faci e tion ent ider Refu lity Give sed n Zost 07-2 121 0.65 Hist WALM No WALM er 1-20 mL oric ART5 ART5 17 al 91 91 Info rmat ion - Sour ce Unsp ecif ied Infl 09-1 Subc 140 999 Hist D203 No D203 uenz 4-20 utan oric 45 45 a, 16 eous al P-Fr Info ee rmat ion - Sour ce Unsp ecif ied
--- OUTSIDE RECORDS SUMMARY | 2017-04-18 08:50 | External Medical Summary Rpt ---
Author Author RACHELLE Krause, RACHELLE pic5 Organization [employer] Address Unknown Phone Unavailable [...]
--- OUTSIDE RECORDS SUMMARY | 2017-04-18 08:50 | External Medical Summary Rpt | CCD ---
Author Author , RACHELLE BUSH Address Unknown Phone [email or web address] Immunization Name Date Rout CVX Reac Dose [...]
--- OUTSIDE RECORDS SUMMARY | 2017-04-18 08:50 | External Medical Summary Rpt | CCD ---
Author Author [employer] Organization [employer] Address Unknown Phone Unavailable Purpose Continuity of Care Document - through 2016
--- NOTE | 2017-04-18 08:55 | Emergency Room Report ---
History of Present Illness Time Seen by 0842 Presenting Problem in Triage Pt arrived:Wheelchair Presenting Problem:PT C/O SOA YESTERDAY MORNING THAT GOT BETTER THROUGHOUT THE DAY YESTERDAY BUT ADVISES THAT IT GOT WORSE THROUGH THE NIGHT AND IS NOW VERY SOA. PT ADVISES SHE WEARS O2 AT NIGHT FOR SLEEP APNEA. 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 N Clinical Suspician of Infection? N Mental Status: 1 - Regular (Normal Baseline) Sepsis Risk:Low Sepsis Risk Have you (or family members/close friends) recently traveled outside the [place]? N If Yes, where/when: Have you had exposure to infectious disease within the past month? N TB? Other? Specify: Source patient, RN notes reviewed, family, RN/MD Exam Limitations no limitations Comment This is an 81-year-old lady arriving to the emergency room for evaluation of her shortness of breath, onset yesterday, associated with exercise and laying down. Patient symptoms have gotten worse over the night, with her being oxygen dependent due to sleep apnea. For the past one week's patient has been having a nonproductive cough, with clear nasal drainage. Shee denies any recent travel or exposure to sick contacts otherwise. ALLERGIES Coded Allergies: Cephalosporins (01/25/17) Penicillins (01/25/17) codeine (01/25/17) erythromycin base (01/25/17) sulfamethoxazole (From Bactrim) (01/25/17) trimethoprim (From Bactrim) (01/25/17) Home Medications Reported Medications Apixaban (Eliquis) 5 MG PO BID #60 Valsartan (Valsartan 160MG) 320 MG PO DAILY Tolterodine Tartrate (Detrol La) 4 MG PO DAILY Omeprazole (Omeprazole 40MG) 40 MG PO DAILY Metoprolol Tartrate (Metoprolol 100MG) 100 MG PO BID Metoclopramide Hydrochloride (Metoclopramide HCl) 5 MG PO ACHS SOTALOL HCL (Sotalol) 80 MG PO BID Furosemide (Lasix) 40 MG PO DAILYP PRN EXCESS FLUID Amlodipine Besylate 2.5 MG PO DAILY DILTIAZEM HCL (Diltiazem 24HR ER) 90 MG PO DAILY NYSTATIN (Nystatin Susp 100,000 Units/Ml 60ML) 5 ML PO QID Gabapentin (Neurontin) 100 MG OR BID FEXOFENADINE HCL (Liz Allergy) 180 MG OR QHS LEVOCETIRIZINE DIHYDROCHLORIDE (Levocetirizine Dihydrochloride) 5 MG PO DAILY History Medical History General CAD? No Angina: Yes IN: Yes Hypertension? Yes Hyperlipidemia? Yes CHF? No DVT? No PE? No COPD? No Asthma? Yes Anemia? No GERD? No Gastric ulcers? No GI Bleed? No Hernia? No Thyroid Problems? No Hypothyroidism? No CVA? Yes Seizures? No Diabetes? No Renal Insuffiency? No End Stage Renal Disease? No UTI? No Stones? No BPH? No GB Disease: No Nephritic Syndrome? No Asplenia? No Hepatitis? No Sickle Cell Disease? No Arthritis? No Migraines? No Cataracts? Yes Glaucoma? No MRSA? No HIV? No TB? No Anxiety? No Depression? No Cancer? No More? No Immunization Hx DT/Tetanus UNKNOWN Flu 2011-FSN Pneumonia Received In Past Surgical Hx Previous Surgery?Y Tonsils Appendix ANTWON OOPHORECTOMY [place]. BREAST BIOPSIES CARDIAC STENT PLACEMENT PACEMAKER 2005 PULMONARY VEIN ABLASION BILATERAL CATARACTS COLONOSCOPY A&P REPAIR Family History Family Hx Diabetes Yes CAD Yes Hypertension Yes Hyperlipidemia No Cancer Yes TB No Social History Smoking Hx Smoker: Former Smoker Tobacco: Yes Type Cigarettes Packs/day N/A Alcohol Alcohol: No Review of Systems All Other Systems Reviewed and Negative Respiratory shortness of breath Physical Exam Vital Signs Vital Signs Date Time Temp Pulse Resp B/P Pulse O2 O2 Flow FiO2 Ox Delivery Rate 04/18 0956 84 26 185/82 94 04/18 0831 90 04/18 0825 98.5 82 26 199/91 91 General Appearance normal appearance, WD/WN, mild distress Respiratory Status Yes: trachea midline, chest symmetrical, non tender chest. No: respiratory distress. Lung Sounds bilateral: rales. Cardiovascular irregularly irregular Gastrointestinal normal bowel sounds, normal exam, non tender, soft, no organomegaly Extremities non-tender, normal range of motion, normal inspection Neurologic alert, urologist physician II-XII nml as tested, normal exam, oriented x 3 Mental status depressed affect Skin intact, normal color, warm/dry Medical Decision Making LABS/Meds/Orders Pt receiving controlled substance in ED? No Comment 11:05-case d/w dr. Alfredo, advised of patient's presentation and findings, agreeable with admission. Care transferred to Dr. Alfredo at this time. I will write temporary admission orders per hospital protocol. Upon patient's arrival to the floor, the unit nurse will call PCP in order to obtain full inpatient admission orders. Dr. Alfredo requested to continue the IV Lasix and obtain an echocardiogram. Dr Alfredo would like to hold off on the IV antibiotics until seen and evaluated on the floor. Results/Orders Laboratory Tests 04/18/17 08: Lactic Acid 1.5 04/18/17844: Creatine Kinase 27, CK-MB (CK-2) Rel Index 1.9, CK and CKMB Interp < 0.5, Troponin I < 0.02 04/18/1745: B-Natriuretic Peptide 221 H 04/18/17 0845: Sodium 139, Potassium 4.1, Chloride 105, Carbon Dioxide 27, BUN 16, Creatinine 0.8, Estimated Creat Clear 69, Estimated GFR (MDRD) 69, Glucose 113 H, Calcium 9.9, Total Bilirubin 0.8, AST 16, ALT 21, Alkaline Phosphatase 121 H, Total Protein 7.5, Albumin 3.6, Globulin 3.9 H, Albumin/Globulin Ratio 0.9 L, WBC 10.3, RBC 4.31, Hgb 12.9, Hct 39.6, MCV 92.0, RDW 13.0, Plt Count 204, MPV 8.7, Gran % 83.4 H, Gran # 8.6 H, Lymphocytes % 8.0 L, Monocytes % 6.8, Eosinophils % 1.5, Basophils % 0.3, Lymphocytes # 0.8, Monocytes # 0.7, Eosinophils # 0.2, Basophils # 0.0, PUBS MCHC 32.3, MCH 29.7 Current Medication Orders Sig/Marizol Start time Last Medication Dose Route Stop Time Status Admin Furosemide 20 MG ONCE ONE 04/18 1100 CAN IV 04/18 1101 Furosemide 40 MG ONCE ONE 04/18 1100 DC 04/18 IV 04/18 1101 1115 Levofloxacin/Dextrose 100 ML ONCE ONE 04/18 1100 CANr IV 04/18 1159 Clonidine HCl 0 .STK-MED ONE 04/18 1037 DC .ROUTE Clonidine HCl 0.1 MG ONCE ONE 04/18 1030 DC 04/18 PO 04/18 1031 1037 Albuterol/Ipratropium 3 ML ONCE ONE 04/18 0830 DC 04/18 INH 04/18 0831 0834 Albuterol/Ipratropium 0 .STK-MED ONE 04/18 0830 DC INH Orders Procedure Date/time Status Decision to admit 04/18 1056 Active RT Aerosol Treatment, Provide 04/18 0835 Active OXYGEN PER NURSE 04/18 0831 Active LACTIC ACID 04/18 0827 Complete CARDIAC ENZYMES 04/18 0827 Complete RT REQUEST DUONEB 04/18 0825 Active CULTURE, BLOOD 04/18 0825 Active CBC WITH AUTO DIFF 04/18 0825 Complete CHEM 12 PROFILE 04/18 0825 Complete XRAY/CT/US XRAY/CT/US XRAY chest XR interpretation by discussed w/radiologist Xray Results cardiomegaly, bilateral pleural effusions, ?? infiltrate lower lung garcia Departure Departure Time of Disposition 1105 Disposition Still a Patient Clinical Impression Primary Impression: CHF exacerbation Qualifiers: Congestive heart failure type: unspecified congestive heart failure type Qualified Code: I50.9 - Heart failure, unspecified Secondary Impressions: Atrial fibrillation Qualifiers: Atrial fibrillation type: chronic Qualified Code: I48.2 - Chronic atrial fibrillation Dyspnea Qualifiers: Dyspnea type: unspecified Qualified Code: R06.00 - Dyspnea, unspecified Pleural effusion Condition STABLE ED Critical Care Critical Care No at 9087
[2017-04-18 09:15] LABS: LYMPH # 0.8 K/mm3 (0.7-4.5)
[2017-04-18 09:26] LABS: HEMOGLOBIN 12.9 g/dL (12.2-16.2)
--- NOTE | 2017-04-18 09:30 | RADIOLOGY REPORT PS360 ---
CHEST(2 VIEWS-NOT PORTABLE) HISTORY: Shortness of air SOA ORDERING PHYSICIAN: Logan Arnett MD PATIENT AGE: 81 years COMPARISON: 10/06/2016 FINDINGS: The heart size is normal. Tripolar pacemaker is present. There are small bilateral pleural effusions with increased markings in the lung bases suggesting underlying atelectasis or infiltrate. Obstructive chronic bronchitis with mild prominence of the interstitium. No acute bony anomalies. IMPRESSION: 1. COPD with mild prominence of the interstitium. 2. Small bilateral effusions with bibasilar atelectasis or infiltrate
--- OUTSIDE RECORDS SUMMARY | 2017-04-18 11:07 | External Medical Summary Rpt | CCD ---
Author Author , RACHELLE BUSH Address Unknown Phone [email or web address] Care Team Providers Care Sheep Sorter Name Role Phone [facility] Unavailable Unavailable Hospital, [facility] Emiliano Alfredo MD, Unavailable Unavailable Emiliano Alfredo MD Purpose Continuity of Care Document - 07-29-2012 through 2016 Problems Code Diagnosis DOS Provider Status 272.1 [facility] [facility] hypertensio [facility] 435.9 Transient [place] ischemic [facility] 558.9 Colitis [facility] Allergies, Adverse Reactions, Alerts Type [...] SI 73 -2 NO 90 3- Lo [place] 35 20 ng [place] 01 13 er [...] BL ET TO 00 07 1 No [place] 18 -2 OL 61 3- Lo 08 [...] ng e TO 00 02 3 No [place] 18 -2 OL 61 3- Lo 09 [...] Order Detail nces retati t Range on Comprehensive metabolic panel (04-18-2017 08:45) Serum 11-13-2 = 0.9 1.1-1.8 complet or 017 ed plasma 08:45 albumin /globul in mass ra Serum 04-18-2 = 3.6 3.4-5.0 complet or 017 gm/dL ed plasma 08:45 albumin measure ment (mas Serum 2 = 121 46-116 complet or 017 U/L ed plasma 08:45 alkalin e phospha tase kevin Serum 2 = 0.8 0.2-1.0 complet or 017 mg/dL ed plasma 08:45 total bilirub in measure m Serum = 16 7-18 complet or 017 mg/dL ed plasma 08:45 urea nitroge n measure men Serum 2 = 9.9 8.5-10. complet or 017 mg/dL 1 ed plasma 08:45 calcium measure ment (mas Serum 2 = 105 98-107 complet or 017 mmoL/L ed plasma 08:45 chlorid e measure ment (mo Carbon = 27 21.0-32 complet dioxide 017 mmoL/L .0 ed 08:45 measure ment Serum 2 = 0.8 0.55-1. complet or 017 mg/dL 02 ed plasma 08:45 creatin ine measure ment ( Estimat = 69 50-200 complet ion of 017 ML/MIN ed creatin 08:45 ine renal clearan ce Estimat = 69 59- complet ed 017 ML/MIN ed glomeru 08:45 lar filtrat ion rate (GF Comment: REFERENCE RANGE: >60 ML/MIN/1.73 SQUARE METERS Comment: If this patient is -[place], then multiply the Comment: result by 1.210. Serum 04-18-2 = 3.9 1.3-3.2 complet globuli 017 gm/dL ed n 08:45 measure ment (mass/v olume) Serum 04-18-2 = 113 74-106 complet or 017 mg/dL ed plasma 08:45 glucose measure ment (mas Serum = 4.1 3.5-5.1 complet potassi 017 mmoL/L ed um 08:45 measure ment Serum = 139 136-145 complet sodium 017 mmoL/L ed measure 08:45 ment Serum = 16 15-37 complet or 017 U/L ed plasma 08:45 asparta te aminotr ansfera ALT = 21 12-78 complet (SGPT) 017 U/L ed ser/narayan 08:45 s Protein = 7.5 6.4-8.2 complet total 017 gm/dL ed ser/narayan 08:45 s CBC w auto diff (04-18-2017 08:45) Automat = 0.0 0-0.2 complet ed 017 K/MM3 ed blood 08:45 basophi l count (count/ vo Baso % = 0.3 % 0.1-2.0 complet 017 ed 08:45 Automat = 0.2 0.0-0.4 complet ed 017 K/mm3 ed blood 08:45 eosinop hil count Automat = 1.5 % 0.1-12. complet ed 017 0 ed blood 08:45 eosinop hils/10 0 leukocy t Blood = 8.6 1.8-7.8 complet granulo 017 K/mm3 ed cytes 08:45 automat ed count (numb Granulo = 83.4 37.0-80 complet cyte 017 % .0 ed percent 08:45 age Blood = 39.6 37.0-47 complet hematoc 017 % .0 ed rit 08:45 (volume fractio n) Blood = 12.9 12.2-16 complet hemoglo 017 g/dL .2 ed bin 08:45 measure ment (mass/v olum Absolut = 0.8 0.7-4.5 complet e 017 K/mm3 ed lymphoc 08:45 yte count Lymphoc = 8.0 % 10-50.0 complet yte 017 ed count, 08:45 blood, automat ed Mean 1113-2 = 29.7 27-31.2 complet corpusc 017 pg ed ular 08:45 hemoglo bin (MCH) determ Automat = 32.3 31.8-35 complet ed 017 g/dl .4 ed erythro 08:45 cyte mean corpusc ular h Automat = 92.0 82.2-97 complet ed 017 fl .8 ed erythro 08:45 cyte mean corpusc ular v Absolut = 0.7 0.1-1.0 complet e 017 K/mm3 ed monocyt 08:45 e count [place] % = 6.8 % 1.7-9.3 complet 017 ed 08:45 Automat = 8.7 7.4-10. complet ed 017 fl 4 ed blood 08:45 platele t mean volume kevin Blood = 204 142-424 complet platele 017 K/mm3 ed t count 08:45 Red = 4.31 4.2-5.4 complet blood 017 M/mm3 ed cell 08:45 count Automat = 13.0 11.5-17 complet ed 017 % .5 ed erythro 08:45 cyte distrib ution width Blood = 10.3 4.8-10. complet leukocy 017 K/MM3 8 ed brenda 08:45 count (number /volume ) Blood lactic acid measurement (moles/vol (04-18-2017 08:45) Blood = 1.5 0.4-2.0 complet lactic 017 mmol/L ed acid 08:45 measure ment (moles/ vol Cardiac enzymes (04-18-2017 08:45) Serum = 1.9 0-4.0 complet or 017 U/L ed plasma 08:45 creatin e kinase MB (CK-M Serum < 0.5 0.0-3.6 complet or 017 ng/mL ed plasma 08:45 creatin e kinase MB measu Serum = 27 26-192 complet or 017 U/L ed plasma 08:45 creatin e kinase measure m Serum < 0.02 0.00-0. complet or 017 ng/mL 06 ed plasma 08:45 troponi n i.cardi ac measu Ca-I Bld-mCnc (06-08-2016 14:54) Ca-I 1.22 1.12-1. complet SerPl 017 mmol/L 32 ed ISE-mCn 14:54 c Mg Ionized SerPl-mCnc (06-08-2016 14:54) Magnesi 2.3 1.3-2.7 complet um 017 mg/dL ed SerPl-m 14:54 Cnc Bas Metab 2000 Pnl SerPl (06-08-2016 14:54) Comment: National Kid[employer] Guidelines Comment: Comment: Stage Description GFR Comment: 1 Normal or High 90+ Comment: 2 Mild decrease 60-89 Comment: 3 Moderate decrease 30-59 Comment: 4 Severe decrease 15-29 Comment: 5 Kidney failure <15 Glucose 90 70-100 complet 017 mg/dL ed Bld-mCn 14:54 c BUN 18 9-23 complet Bld-mCn 017 mg/dL ed c 14:54 Chlorid 105 99-109 complet e 017 mmol/L ed SerPl-s 14:54 Cnc GFR/BSA 81 >60 complet .pred 017 mL/min/ ed SerPl 14:54 1.73 MDRD-Ar VRat BUN/Cre 25.7 7.0-25. complet at 017 0 ed SerPl 14:54 Anion 7.0 3.0-11. complet Gap3 017 mmol/L 0 ed SerPl-s 14:54 Cnc Creat 0.70 0.60-1. complet Bld-mCn 017 mg/dL 30 ed c 14:54 Sodium 138 132-146 complet Bld-sCn 017 mmol/L ed c 14:54 Potassi 4.2 3.5-5.5 complet um 017 mmol/L ed Bld-sCn 14:54 c CO2 26.0 20.0-31 complet SerPl-s 017 mmol/L .0 ed Cnc 14:54 Calcium 9.5 8.7-10. complet 017 mg/dL 4 ed XXX-sCn 14:54 c PT PPP (06-08-2016 14:54) Comment: Therapeutic Ranges for INR:2.0-3.0 (PT 20-30) Comment: 2.5-3.5 (PT 25-34) PT PPP 15.0 9.6-11. complet 017 Seconds 5 ed 14:54 INR PPP 1.36 complet 017 ed 14:54 aPTT PPP (06-08-2016 14:54) Comment: PTT = The equivalent PTT values for the therapeutic range of heparin levels at 0.3 to 0.5 U/ml are 45 to 60 seconds. aPTT 51.9 24.0-31 complet PPP 017 seconds .0 ed 14:54 CBC (hemogram) Bld Auto (05-28-2016 08:01) WBC -23-2 8.30 3.50-10 complet nRBC 016 10*3/mm .80 ed cor # 08:01 3 Bld RBC # 23-2 4.33 3.89-5. complet Bld 016 10*6/mm 14 ed Auto 08:01 3 Hgb 23-2 13.9 11.5-15 complet Bld-mCn 016 g/dL .5 ed c 08:01 Hct VFr 23-2 41.2 % 34.5-44 complet Bld 016 .0 ed Auto 08:01 MCV RBC 23-2 95.2 fL 80.0-99 complet Auto 016 .0 ed 08:01 MCH RBC 23-2 32.1 pg 27.0-31 complet Qn 016 .0 ed Auto 08:01 MCHC 23-2 33.7 32.0-36 complet RBC 016 g/dL .0 ed Auto-mC 08:01 nc RDW RBC 23-2 13.3 % 11.3-14 complet 016 .5 ed Auto-Rt 08:01 o RDW RBC -23-2 46.2 fl 37.0-54 complet Auto 016 .0 ed 08:01 PMV Bld 23-2 10.6 fL 6.0-12. complet Auto 016 0 ed 08:01 Platele 23-2 260 150-450 complet t # Bld 016 10*3/mm ed Auto 08:01 3 Bas Metab 2000 Pnl SerPl (05-28-2016 08:01) Comment: National Kid[employer] Guidelines Comment: Comment: Stage Description GFR Comment: 1 Normal or High 90+ Comment: 2 Mild decrease 60-89 Comment: 3 Moderate decrease 30-59 Comment: 4 Severe decrease 15-29 Comment: 5 Kidney failure <15 Glucose 97 70-100 complet 016 mg/dL ed Bld-mCn 08:01 c BUN 2 21 9-23 complet Bld-mCn 016 mg/dL ed c 08:01 Creat 2 0.80 0.60-1. complet Bld-mCn 016 mg/dL 30 ed c 08:01 Sodium 137 132-146 complet Bld-sCn 016 mmol/L ed c 08:01 Potassi 4.0 3.5-5.5 complet um 016 mmol/L ed Bld-sCn 08:01 c Chlorid 105 99-109 complet e 016 mmol/L ed SerPl-s 08:01 Cnc CO2 26.0 20.0-31 complet SerPl-s 016 mmol/L .0 ed Cnc 08:01 Calcium 9.7 8.7-10. complet 016 mg/dL 4 ed XXX-sCn 08:01 c GFR/BSA 69 >60 complet .pred 016 mL/min/ ed SerPl 08:01 1.73 MDRD-Ar VRat BUN/Cre 26.3 7.0-25. complet at 016 0 ed SerPl 08:01 Anion 6.0 3.0-11. complet Gap3 016 mmol/L 0 ed SerPl-s 08:01 Cnc Hgb A1c Bld (05-28-2016 08:01) Comment: The [place] [employer] recommends maintenance of Hemoglobin A1C at 7.0% or lower. Goals for Hemoglobin A1C reduction may need to be modified if hypoglycemia is a problem. Hgb A1c 5.10 % 4.80-5. complet MFr 016 60 ed Bld 08:01 COMPREHENSIVE METABOLIC PANEL (05-18-2013 09:30) Glucose 108 74-106 complet 013 mg/dL ed Bld-mCn 09:30 c BUN 12-13-2 14 7-18 complet Bld-mCn 013 mg/dL ed c 09:30 Creat 05-18-2 0.8 0.6-1.0 complet SerPl-m 013 mg/dL ed Cnc 09:30 Creat 05-18-2 68 50-200 complet Cl 013 ML/MIN ed predict 09:30 ed SerPl C-G-vRa te GFR/BSA 70 59- complet .pred 013 ML/MIN ed SerPl 09:30 Schwart z-vRate Sodium 136 136-145 complet SerPl-s 013 mmoL/L ed Cnc 09:30 Potassi 3.6 3.5-5.1 complet um 013 mmoL/L ed SerPl-s 09:30 Cnc Chlorid 100 98-107 complet e 013 mmoL/L ed SerPl-s 09:30 Cnc CO2 28 21.0-32 complet SerPl-s 013 mmoL/L .0 ed Cnc 09:30 Calcium 05-18-2 9.3 8.5-10. complet 013 mg/dL 1 ed SerPl-m 09:30 Cnc Prot 05-18-2 7.7 6.4-8.2 complet SerPl-m 013 gm/dL ed Cnc 09:30 Albumin 05-18-2 4.0 3.4-5.0 complet 013 gm/dL ed SerPl-m 09:30 Cnc Globuli 05-18-2 3.7 1.3-3.2 complet n 013 gm/dL ed Ser-mCn 09:30 c Albumin 05-18-2 1.1 UNK 1.1-1.8 complet /Glob 013 ed SerPl-m 09:30 Rto Bilirub 05-18-2 0.4 0.2-1.0 complet 013 mg/dL ed SerPl-m 09:30 Cnc AST 05-18-2 23 U/L 15-37 complet SerPl-c 013 ed Cnc 09:30 ALT 05-18-2 49 U/L 30-65 complet SerPl-c 013 ed Cnc 09:30 ALP 05-18-2 88 U/L 50-136 complet SerPl-c 013 ed [...] with AUTO DIFF (12-27-2012 05:10) WBC # 12-27-2 6.2 4.8-10. complet Bld 013 K/MM3 8 ed Auto 05:10 RBC # 07-24-2 4.82 4.2-5.4 complet Bld 013 M/mm3 ed Auto 05:10 Hgb -24-2 14.1 12.2-16 complet Bld-mCn 013 g/dL .2 ed c 05:10 Hct Fr 24-2 42.3 % 37.0-47 complet Bld 013 .0 ed 05:10 MCV RBC 24-2 87.8 fl 82.2-97 complet 013 .8 ed 05:10 MCH RBC 24-2 29.1 pg 27-31.2 complet Qn 013 ed Auto 05:10 MEAN -24-2 33.2 31.8-35 complet CORPUSC 013 g/dl .4 ed ULAR 05:10 HGB CONC RDW RBC 24-2 13.3 % 11.5-17 complet Auto 013 .5 ed 05:10 Platele -24-2 226 142-424 complet t Bld 013 K/mm3 ed Ql 05:10 Manual MEAN 24-2 8.0 fl 7.4-10. complet PLATELE 013 4 ed T 05:10 VOLUME Granulo 07-24-2 63.5 % 37.0-80 complet cytes 013 .0 ed Fr Bld 05:10 Auto LYMPH % 07-24-2 22.4 % 10-50.0 complet 013 ed 05:10 Monocyt 07-24-2 9.4 % 1.7-9.3 complet es Fr 013 ed Bld 05:10 Auto Eosinop 07-24-2 4.2 % 0.1-12. complet hil Fr 013 0 ed Bld 05:10 Auto Basophi 07-24-2 0.5 % 0.1-2.0 complet ls Fr 013 ed Bld 05:10 Auto Granulo 07-24-2 4.0 1.8-7.8 complet cytes # 013 K/mm3 ed Bld 05:10 Auto Lymphoc 07-24-2 1.4 0.7-4.5 complet ytes Fr 013 K/mm3 ed Bld 05:10 Auto Monocyt 07-24-2 0.6 0.1-1.0 complet es # 013 K/mm3 ed Bld 05:10 Auto Eosinop 07-24-2 0.3 0.0-0.4 complet hil # 013 K/mm3 ed Bld 05:10 Auto Basophi 12-27-2 0.0 0-0.2 complet ls # 013 K/MM3 ed Bld 05:10 Auto COMPREHENSIVE METABOLIC PANEL (12-26-2012 05:00) Glucose 99 74-106 complet 013 mg/dL ed Bld-mCn 05:00 c BUN 12-26-2 22 7-18 complet Bld-mCn 013 mg/dL ed c 05:00 Creat 12-26-2 1.1 0.6-1.0 complet SerPl-m 013 mg/dL ed Cnc 05:00 ESTIMAT 12-26-2 50 50-200 complet ED 013 ML/MIN ed [...] mg/dL 1 ed SerPl-m 05:00 Cnc Prot 12-26-2 6.6 6.4-8.2 complet SerPl-m 013 gm/dL ed Cnc 05:00 Albumin 12-26-2 3.5 3.4-5.0 complet 013 gm/dL ed SerPl-m 05:00 Cnc Globuli 12-26-2 3.1 1.3-3.2 complet n 013 gm/dL ed Ser-mCn 05:00 c Albumin 12-26-2 1.1 UNK 1.1-1.8 complet /Glob 013 ed SerPl-m 05:00 Rto Bilirub 12-26- 0.3 0.2-1.0 complet 013 mg/dL ed SerPl-m 05:00 Cnc AST 12-26- 14 U/L 15-37 complet SerPl-c 013 ed Cnc 05:00 ALT 2 33 U/L 30-65 complet SerPl-c 013 ed Cnc 05:00 ALP 12-26-2 131 U/L 50-136 complet SerPl-c 013 ed Cnc 05:00 LIPID PROFILE (12-26-2012 05:00) Cholest 12-26-2 193 Less complet 013 mg/dL than ed SerPl-m 05:00 200 Cnc HDLc 12-26-2 33.0 40-60 complet SerPl-m 013 MG/DL ed Cnc 05:00 LDLc 2 107.2 0-130 complet SerPl 013 mg/dL ed Calc-mC 05:00 nc VLDL 12-26-2 52.8 0-40 complet CHOLEST 013 UNK ed CÉSAR 05:00 Trigl 12-26-2 264 30-200 complet SerPl-m 013 mg/dL ed Cnc 05:00 PROTIME/INR (12-26-2012 05:00) PROTHRO 12-26-2 10.7 9.9-11. complet MBIN 013 SECONDS 6 ed TIME 05:00 INR Bld 2 1.00 0.9-1.1 complet 013 UNK ed 05:00 ACT PARTIAL THROMBO TIME (12-26-2012 05:00) ACT 12-26-2 27.2 25.3-32 complet PARTIAL 013 SECONDS .0 ed 05:00 THROMBO TIME CBC with AUTO DIFF (12-26-2012 05:00) WBC # 12-26-2 5.1 4.8-10. complet Bld 013 K/MM3 8 ed Auto 05:00 RBC # 12-26-2 4.54 4.2-5.4 complet Bld 013 M/mm3 ed Auto 05:00 Hgb 12-26-2 13.2 12.2-16 complet Bld-mCn 013 g/dL .2 ed c 05:00 Hct Fr 39.9 % 37.0-47 complet Bld 013 .0 ed 05:00 MCV RBC 88.0 fl 82.2-97 complet 013 .8 ed 05:00 MCH RBC 29.2 pg 27-31.2 complet Qn 013 ed Auto 05:00 MEAN 07-23-2 33.1 31.8-35 complet CORPUSC 013 g/dl .4 ed ULAR 05:00 HGB CONC RDW RBC 23-2 13.2 % 11.5-17 complet Auto 013 .5 ed 05:00 Platele -23-2 204 142-424 complet t Bld 013 K/mm3 ed Ql 05:00 Manual MEAN 23-2 8.2 fl 7.4-10. complet PLATELE 013 4 ed T 05:00 VOLUME Granulo -23-2 56.3 % 37.0-80 complet cytes 013 .0 [...] 013 mg/dL ed Bld-mCn 06:25 c BUN 08-01-2 16 7-18 complet Bld-mCn 013 mg/dL ed c 06:25 Creat 08-01-2 0.8 0.6-1.0 complet SerPl-m 013 mg/dL ed Cnc 06:25 ESTIMAT 08-01-2 70 50-200 complet ED 013 ML/MIN ed CREATIN 06:25 INE CLEARAN CE GFR 70 59- complet (ESTIMA 013 ML/MIN ed LUIS) 06:25 Sodium 138 136-145 complet SerPl-s 013 mmoL/L ed Cnc 06:25 Potassi 3.0 3.5-5.1 complet um 013 mmoL/L ed SerPl-s 06:25 Cnc Chlorid 102 98-107 complet e 013 mmoL/L ed SerPl-s 06:25 Cnc CO2 30 21.0-32 complet SerPl-s 013 mmoL/L .0 ed Cnc 06:25 Calcium 8.4 8.5-10. complet 013 mg/dL 1 ed SerPl-m 06:25 Cnc CBC with AUTO DIFF (08-01-2012 06:25) WBC # 08-01-2 10.9 4.8-10. complet Bld 013 K/MM3 8 ed Auto 06:25 RBC # 08-01-2 4.33 4.2-5.4 complet Bld 013 M/mm3 ed Auto 06:25 Hgb 2 12.5 12.2-16 complet Bld-mCn 013 g/dL .2 ed c 06:25 Hct Fr 37.5 % 37.0-47 complet Bld 013 .0 ed 06:25 MCV RBC 86.6 fl 82.2-97 complet 013 .8 ed 06:25 MCH RBC 29.0 pg 27-31.2 complet Qn 013 ed Auto 06:25 MEAN 33.5 31.8-35 complet CORPUSC 013 g/dl .4 ed ULAR 06:25 HGB CONC RDW RBC 08-01-2 13.2 % 11.5-17 complet Auto 013 .5 ed 06:25 Platele 08-01- 199 142-424 complet t Bld 013 K/mm3 ed Ql 06:25 Manual MEAN 8.0 fl 7.4-10. complet PLATELE 013 4 ed T 06:25 VOLUME Granulo 77.2 % 37.0-80 complet cytes 013 .0 ed Fr Bld 06:25 Auto LYMPH % 08-01-2 12.7 % 10-50.0 complet 013 ed 06:25 Monocyt 08-01-2 9.1 % 1.7-9.3 complet es Fr 013 ed Bld 06:25 Auto Eosinop 08-01-2 0.8 % 0.1-12. complet hil Fr 013 0 ed Bld 06:25 Auto Basophi 08-01-2 0.1 % 0.1-2.0 complet ls Fr 013 ed Bld 06:25 Auto Granulo 08-01-2 8.4 1.8-7.8 complet cytes # 013 K/mm3 ed Bld 06:25 Auto Lymphoc 08-01-2 1.4 0.7-4.5 complet ytes Fr 013 K/mm3 ed Bld 06:25 Auto Monocyt 08-01-2 1.0 0.1-1.0 complet es # 013 K/mm3 ed Bld 06:25 Auto Eosinop 08-01-2 0.1 0.0-0.4 complet hil # 013 K/mm3 ed Bld 06:25 Auto Basophi 08-01-2 0.0 0-0.2 complet ls # 013 K/MM3 ed Bld 06:25 Auto BASIC METABOLIC PANEL (07-31-2012 06:48) Glucose 89 74-106 complet 013 mg/dL ed Bld-mCn 06:48 c BUN 17 7-18 complet Bld-mCn 013 mg/dL ed c 06:48 Creat 0.9 0.6-1.0 complet SerPl-m 013 mg/dL ed Cnc 06:48 ESTIMAT 62 50-200 complet ED 013 ML/MIN ed CREATIN 06:48 INE CLEARAN CE GFR 61 59- complet (ESTIMA 013 ML/MIN ed LUIS) 06:48 Sodium 138 136-145 complet SerPl-s 013 mmoL/L ed Cnc 06:48 Potassi 3.1 3.5-5.1 complet um 013 mmoL/L ed SerPl-s 06:48 Cnc Chlorid 104 98-107 complet e 013 mmoL/L ed SerPl-s 06:48 Cnc CO2 28 21.0-32 complet SerPl-s 013 mmoL/L .0 ed Cnc 06:48 Calcium 02-25-2 8.4 8.5-10. complet 013 mg/dL 1 ed SerPl-m 06:48 Cnc CBC with AUTO DIFF (07-31-2012 06:48) WBC # 02-25-2 16.4 4.8-10. complet Bld 013 K/MM3 8 ed Auto 06:48 RBC # 02-25-2 4.48 4.2-5.4 complet Bld 013 M/mm3 ed Auto 06:48 Hgb -25-2 13.0 12.2-16 complet Bld-mCn 013 g/dL .2 ed c 06:48 Hct Fr 07-31-2 38.5 % 37.0-47 complet Bld 013 .0 ed 06:48 MCV RBC 07-31-2 86.0 fl 82.2-97 complet 013 .8 ed 06:48 MCH RBC 07-31-2 29.0 pg 27-31.2 complet Qn 013 ed Auto 06:48 MEAN 07-31-2 33.7 31.8-35 complet CORPUSC 013 g/dl .4 ed ULAR 06:48 HGB CONC RDW RBC 07-31-2 13.3 % 11.5-17 complet Auto 013 .5 ed 06:48 Platele -25-2 194 142-424 complet t Bld 013 K/mm3 ed Ql 06:48 Manual MEAN 07-31-2 7.8 fl 7.4-10. complet PLATELE 013 4 ed T 06:48 VOLUME Granulo 07-31-2 84.8 % 37.0-80 complet cytes 013 .0 ed Fr Bld 06:48 Auto LYMPH % -25-2 8.2 % 10-50.0 complet 013 ed 06:48 Monocyt 02-25-2 6.7 % 1.7-9.3 complet es Fr 013 ed Bld 06:48 Auto Eosinop -25-2 0.3 % 0.1-12. complet hil Fr 013 0 ed Bld 06:48 Auto Basophi -25-2 0.0 % 0.1-2.0 complet ls Fr 013 ed Bld 06:48 Auto Granulo 02-25-2 13.9 1.8-7.8 complet cytes # 013 K/mm3 [...] Bld-mCn 013 mg/dL ed c 06:30 Creat 2 0.8 0.6-1.0 complet SerPl-m 013 mg/dL ed Cnc 06:30 ESTIMAT 70 50-200 complet ED 013 ML/MIN ed CREATIN 06:30 INE CLEARAN CE GFR 70 59- complet (ESTIMA 013 ML/MIN ed LUIS) 06:30 Sodium 07-30- 138 136-145 complet SerPl-s 013 mmoL/L ed Cnc 06:30 Potassi 2 3.6 3.5-5.1 complet um 013 mmoL/L ed SerPl-s 06:30 Cnc Chlorid 102 98-107 complet e 013 [...] complet 013 .8 ed 06:30 MCH RBC 24-2 28.6 pg 27-31.2 complet Qn 013 ed Auto 06:30 MEAN 24-2 33.2 31.8-35 complet CORPUSC 013 g/dl .4 ed ULAR 06:30 HGB CONC RDW RBC 24-2 13.4 % 11.5-17 complet Auto 013 .5 ed 06:30 Platele -24-2 182 142-424 complet t Bld 013 K/mm3 ed Ql 06:30 Manual MEAN 07-30-2 8.1 fl 7.4-10. complet PLATELE 013 4 ed T 06:30 VOLUME Granulo -24-2 92.1 % 37.0-80 complet cytes 013 .0 ed Fr Bld 06:30 Auto LYMPH % 02-24-2 4.6 % 10-50.0 complet 013 ed 06:30 [...] 013 K/mm3 ed Bld 06:30 Auto Eosinop 02-24-2 0.0 0.0-0.4 complet hil # 013 K/mm3 ed Bld 06:30 Auto Basophi 02-24-2 0.0 0-0.2 complet ls # 013 K/MM3 ed Bld 06:30 Auto ESR Bld Qn 15M (07-30-2012 06:30) ESR Bld 24-2 10 0-30 complet Qn 15M 013 mm/hr ed 06:30 OCCULT BLOOD (07-29-2012 07:25) Hemocul 07-29-2 POSITIV NEG complet t sp1 013 E ed Stl Ql 07:25 COMPREHENSIVE METABOLIC PANEL (07-29-2012 06:50) Glucose 07-29-2 144 74-106 complet 013 mg/dL ed Bld-mCn 06:50 c BUN 23-2 25 7-18 complet Bld-mCn 013 mg/dL ed c 06:50 Creat -23-2 1.4 0.6-1.0 complet SerPl-m 013 mg/dL ed [...] 013 gm/dL ed SerPl-m 06:50 Cnc Globuli -23-2 3.7 1.3-3.2 complet n 013 gm/dL ed [...] FAUSTIN DO (ER) 3 09:42 3 11:26 [facility] Inpatient CINDY Alfredo MD (IN) 3 04:47 3 09:30 [facility] Emergency ALBERTO Cheek MD (ER) 3 11:45 3 13:31 [facility] Inpatient CINDY Alfredo MD (IN) 3 06:54 3 09:40 [facility]
--- OUTSIDE RECORDS SUMMARY | 2017-04-18 11:07 | External Medical Summary Rpt | CCD ---
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 Role Phone [facility] Unavailable Unavailable Hospital, [facility] Emiliano Alfredo MD, Unavailable Unavailable Emiliano Alfredo MD Purpose Continuity of Care Document - 07-29-2012 through 2016 Problems Code Diagnosis DOS Provider Status 272.1 [facility] [place] [facility] hypertensio [facility] n 435.9 Transient [place] ischemic [facility] 558.9 Colitis [facility] Allergies, Adverse Reactions, Alerts Type Drug [...] SI 73 -2 NO 90 3- Lo NC 35 20 ng [place] 01 13 er [...] BL ET TO 00 07 1 No NC 18 -2 OL 61 3- Lo 08 [...] ng e TO 00 02 3 No NC 18 -2 OL 61 3- Lo 09 [...] SQUARE METERS Comment: If this patient is -[place], then multiply the Comment: result by 1.210. [...] 017 K/mm3 ed monocyt 08:45 e count [place] % = 6.8 % 1.7-9.3 complet 017 [...] Hgb A1c Bld (05-28-2016 08:01) Comment: The [place] [employer] recommends maintenance of Hemoglobin A1C [...] FAUSTIN DO (ER) 3 09:42 3 11:26 [facility] Inpatient CINDY Alfredo MD (IN) 3 04:47 3 09:30 [facility] Emergency ALBERTO Cheek MD (ER) 3 11:45 3 13:31 [facility] Inpatient CINDY Alfredo MD (IN) 3 06:54 3 09:40 [facility]
--- OUTSIDE RECORDS SUMMARY | 2017-04-18 11:08 | External Medical Summary Rpt | CCD ---
Author Author , RACHELLE BUSH Address Unknown Phone [email or web address] Immunization Name Date Rout CVX Reac Dose [...]
--- OUTSIDE RECORDS SUMMARY | 2017-04-18 11:08 | External Medical Summary Rpt ---
Author Author RACHELLE Nelida, [employer] Organization [employer] Address Unknown Phone Unavailable Results Lactate [Moles/volume] in Blood Observa Value Referen Units Interpr Notes Date tion ce etation Range Lactate 0.4 - 2.0 mmol/L Normal No Apr 18 [Moles/vo informati 2016 8:45 lume] in on in AM Blood source data CBC W Auto Differential panel in Blood Observa Value Referen Units Interpr Notes Date tion ce etation Range Basophils 0 - 0.2 K/MM3 Normal No Apr 18 informati 2016 8:45 [#/volume on in AM ] in source Blood by data Automated count Basophils 0.1 - 2.0 % Normal No Apr 18 informati 2016 8:45 leukocyte on in AM s in source Blood by data Automated count Eosinophi 0.0 - 0.4 K/mm3 Normal Apr 18 ls informati 2016 8:45 [#/volume on in AM ] in source Blood by data Automated count Eosinophi 0.1 - % Normal Apr 18 ls/100 12.0 informati 2016 8:45 leukocyte on in AM s in source Blood by data Automated count Granulocy 1.8 - 7.8 K/mm3 High Apr 18 brenda informati 2016 8:45 [#/volume on in AM ] in source Blood by data Automated count Granulocy 37.0 - % High Apr 18 brenda/100 80.0 informati 2016 8:45 leukocyte on in AM s in source Blood by data Automated count Hematocri 37.0 - % Normal Apr 18 t [Volume 47.0 informati 2016 8:45 on in AM Fraction] source of Blood data Hemoglobi 12.2 - g/dL No Apr 18 n 16.2 informati informati 2016 8:45 [Mass/vol on in on in AM ume] in source source Blood data data Lymphocyt 0.7 - 4.5 K/mm3 Normal No Apr 18 es informati 2016 8:45 [#/volume on in AM ] in source Unspecifi data ed specimen by Automated count Lymphocyt 10 - 50.0 % Low No Apr 18 es informati 2016 8:45 [#/volume on in AM ] in source Unspecifi data ed specimen by Automated count Erythrocy 27 - 31.2 pg Normal No Apr 18 te mean inform2016 8:45 corpuscul on in AM ar source hemoglobi data n [Entitic mass] Erythrocy 31.8 - g/dl Normal No Apr 18 te mean 35.4 informati 2016 8:45 corpuscul on in AM ar source hemoglobi data n concentra tion [Mass/vol ume] by Automated count Erythrocy 82.2 - fl Normal No Apr 18 te mean 97.8 informati 2016 8:45 corpuscul on in AM ar volume source [Entitic data volume] by Automated count Monocytes 0.1 - 1.0 K/mm3 Normal No Apr 18 informati 2016 8:45 [#/volume on in AM ] in source Blood by data Automated count Monocytes 1.7 - 9.3 % Normal No Apr 18 /100 informati 2016 8:45 leukocyte on in AM s in source Blood by data Automated count Platelet 7.4 - fl Normal No Apr 18 mean 10.4 informati 2016 8:45 volume on in AM [Entitic source volume] data in Blood by Automated count Platelets 142 - 424 K/mm3 Normal No Apr 182016 8:45 [#/volume on in AM ] in source Blood data Erythrocy 4.2 - 5.4 M/mm3 Normal No Apr 18 brenda informati 2016 8:45 [#/volume on in AM ] in source Amniotic data fluid Erythrocy 11.5 - % Normal No Apr 18 te 17.5 ati 2016 8:45 distribut on in AM ion width source [Entitic data volume] by Automated count Leukocyte 4.8 - K/MM3 Normal No Apr 18 s 10.8 informati 2016 8:45 [#/volume on in AM ] in source Blood data Comprehensive metabolic 2000 panel in Serum or Plasma Observa Value Referen Units Interpr Notes Date tion ce etation Range Albumin/G 1.1 - 1.8 No Low No Apr 18 lobulin informati informati 2016 8:45 [Mass on in on in AM ratio] in source source Serum or data data Plasma Albumin 3.4 - 5.0 gm/dL Normal No Apr 18 [Mass/vol informati 2016 8:45 ume] in on in AM Serum or source Plasma data Alkaline 46 - 116 U/L High No Apr 18 phosphata informati 2016 8:45 se on in AM [Enzymati source c data activity/ volume] in Serum or Plasma Bilirubin 0.2 - 1.0 mg/dL Normal No Apr 18 .total informati 2016 8:45 [Mass/vol on in AM ume] in source Serum or data Plasma Urea 7 - 18 mg/dL Normal No Apr 18 nitrogen informati 2016 8:45 [Mass/vol on in AM ume] in source Serum or data Plasma Calcium 8.5 - mg/dL Normal No Apr 18 [Mass/vol 10.1 informati 2016 8:45 ume] in on in AM Serum or source Plasma data Chloride 98 - 107 mmoL/L Normal No Apr 18 [Moles/vo informati 2016 8:45 lume] in on in AM Serum or source Plasma data Carbon 21.0 - mmoL/L Normal No Apr 18 dioxide, 32.0 informati 2016 8:45 total on in AM [Moles/vo source lume] in data Serum or Plasma Creatinin 0.55 - mg/dL Normal No Apr 18 e 1.02 informati 2016 8:45 [Mass/vol on in AM ume] in source Serum or data Plasma Creatinin 50 - 200 ML/MIN Normal No Apr 18 e renal informati 2016 8:45 clearance on in AM source predicted data by Cockcroft -Gault formula Estimated 59- ML/MIN No REFERENCE Apr 18 informati RANGE: 2017 8:45 glomerula on in >60 AM r source ML/MIN/1. filtratio data 73 SQUARE n rate METERSIf (GF this patient is -A merican, then multiply theresult by 1.210. Globulin 1.3 - 3.2 gm/dL High No Apr 18 [Mass/vol informati 2016 8:45 ume] in on in AM Serum source data Glucose 74 - 106 mg/dL High No Apr 18 [Mass/vol informati 2016 8:45 ume] in on in AM Serum or source Plasma data Potassium 3.5 - 5.1 mmoL/L Normal No Apr 18 informati 2016 8:45 [Moles/vo on in AM lume] in source Serum or data Plasma Sodium 136 - 145 mmoL/L Normal No Apr 18 [Moles/vo informati 2016 8:45 lume] in on in AM Serum or source Plasma data Aspartate 15 - 37 U/L Normal No Apr 18 informati 2016 8:45 aminotran on in AM sferase source [Enzymati data c activity/ volume] in Serum or Plasma Alanine 12 - 78 U/L Normal No Apr 18 aminotran informati 2016 8:45 sferase on in AM [Enzymati source c data activity/ volume] in Serum or Plasma Protein 6.4 - 8.2 gm/dL No No Apr 18 [Mass/vol informati informati 2016 8:45 ume] in on in on in AM Serum or source source Plasma data data Urea nitrogen [Mass/volume] in Serum or Plasma [...]
--- OUTSIDE RECORDS SUMMARY | 2017-04-18 11:08 | External Medical Summary Rpt ---
Author Author RACHELLE Nelida, [employer] Address Unknown Phone Unavailable Results Lactate [...]
--- OUTSIDE RECORDS SUMMARY | 2017-04-18 11:08 | External Medical Summary Rpt | CCD ---
Author Author , RACHELLE BUSH Address Unknown Phone [email or web address] Immunization Name Date Rout CVX Reac Dose [...]
[2017-04-18] MEDS ORDERED: ELIQUIS5 MG PO (11:21)
[2017-04-18] MEDS ORDERED: DETROL LA4 MG PO (11:24)
[2017-04-18] MEDS ORDERED: VALSARTAN160 MG PO ×2 (11:24→13:00)
[2017-04-18] MEDS ORDERED: OMEPRAZOLE40 MG PO (11:25)
[2017-04-18] MEDS ORDERED: METOPROLOL TAR100 MG PO (11:25)
[2017-04-18] MEDS ORDERED: METOCLOPRAMIDE H5 MG PO (11:26)
[2017-04-18 12:19] VITALS: BP 171/80
[2017-04-18 12:21] VITALS: BP 171/80
[2017-04-18] MEDS ORDERED: BENZONATATE100 MG PO (12:46)
[2017-04-18] MEDS ORDERED: D-10001 TAB PO (12:49)
[2017-04-18] MEDS ORDERED: CO Q10100 MG PO (12:49)
[2017-04-18] MEDS ORDERED: DOFETILIDE125 MCG PO (12:51)
[2017-04-18] MEDS ORDERED: MIRALAX17 GM/PACK PO (12:54)
[2017-04-18] MEDS ORDERED: OMEGA-31000 M2 PO (12:56)
[2017-04-18] MEDS ORDERED: METHYLCELLULOSE (12:58)
[2017-04-18] MEDS ORDERED: DETROL LA 2 MG C2 MG PO (12:59)
[2017-04-18] MEDS ORDERED: EUCERIN DAILY400 ML PO (13:07)
[2017-04-18] MEDS ORDERED: BRINTELLIX20 MG PO (13:09)
--- NOTE | 2017-04-18 13:38 | PHARMACY CLINIC NOTE ---
See Addendum Patient Demographics Patient Demographics Admission date: 04/18/17 Date: 04/18/17 Time: 1337 Allergies Coded Allergies: Cephalosporins (01/25/17) Penicillins (01/25/17) codeine (01/25/17) erythromycin base (01/25/17) sulfamethoxazole (From Bactrim) (01/25/17) trimethoprim (From Bactrim) (01/25/17) HEIGHT- FT: 5 IN: 2.00 K.003 VTE General Information Labs: Laboratory Tests 04/18 0845 Hematology Hgb (12.2 - 16.2 g/dL) 12.9 Hct (37.0 - 47.0 %) 39.6 Plt Count (142 - 424 K/mm3) 204 Disclaimer The following section includes nursing documentation that has been pulled in for pharmacy review. Patient's VTE score: 4 Patient's VTE Risk: LOW RISK Clinical trial participant? No VTE prophylaxis NQF [id number] VTE prophylaxis ordered? Yes Type of prophylaxis/treatment: LUIS at 2983
[2017-04-18 16:14] VITALS: BP 141/60
--- NOTE | 2017-04-18 17:39 | HISTORY AND PHYSICAL REPORT ---
Demographics: Admit date: 04/18/17 Chief complaint: Shortness of breath PRIMARY DIAGNOSIS: CHF, PNEUMONIA Allergies: Coded Allergies: Cephalosporins (01/25/17) Penicillins (01/25/17) codeine (01/25/17) erythromycin base (01/25/17) sulfamethoxazole (From Bactrim) (01/25/17) trimethoprim (From Bactrim) (01/25/17) History of present illness: History of present illness: 81-year-old female presented to the emergency department this morning after repeated episodes of dyspnea and wheezing over the weekend. Patient has a history of obstructive airway disease for which she uses Dulera and reports repeated wheezing over the weekend that would respond to her Dulera. She does not have a rescue inhaler. This morning she had recurrence of wheezing along with shortness of breath especially with ambulation and sought treatment in the ER. She endorsed additional symptoms of cough with clear sputum production body aches and chills but no fevers. Patient was worked up and felt to have a combination of congestive heart failure as well as possible pneumonia and has been admitted for diuresis and monitoring. Patient has a personal history of atrial fibrillation. Last known cardiac workup was in the last calendar year and patient had a normal ejection fraction. Past medical history: Family HX Family Hx Insignificant No Diabetes Yes CAD Yes Hypertension Yes Hyperlipidemia No Cancer Yes TB No Immunization HX DT/Tetanus UNKNOWN Flu 2017-18FSN Pneumonia Received In Past TB Test in last year No General CAD? No Angina: Yes [place]: Yes Hypertension? Yes Hyperlipidemia? Yes CHF? No DVT? No PE? No COPD? No Asthma? Yes Anemia? No GERD? No Gastric ulcers? No GI Bleed? No Hernia? No Thyroid Problems? No Hypothyroidism? No CVA? Yes Seizures? No Diabetes? No Renal Insuffiency? No UTI? No Stones? No BPH? No GB Disease: No Nephritic Syndrome? No Asplenia? No Hepatitis? No Sickle Cell Disease? No Arthritis? No Migraines? No Cataracts? Yes Glaucoma? No MRSA? No HIV? No TB? No Anxiety? No Depression? No Cancer? No More? No Past Surgical HX Previous Surgery?Y Tonsils Appendix ANTWON OOPHORECTOMY [place]. BREAST BIOPSIES CARDIAC STENT PLACEMENT PACEMAKER 2004 PULMONARY VEIN ABLASION BILATERAL CATARACTS COLONOSCOPY A&P REPAIR Current home meds: Reported Medications Apixaban (Eliquis) 5 MG PO BID #60 DILTIAZEM HCL (Diltiazem 24HR ER) 120 MG PO BID FEXOFENADINE HCL (Liz Allergy) 180 MG OR DAILY Valsartan (Valsartan 160MG) 320 MG PO DAILY Tolterodine Tartrate (Detrol La) 4 MG PO DAILY Omeprazole (Omeprazole 40MG) 40 MG PO DAILY Metoprolol Tartrate (Metoprolol 100MG) 100 MG PO BID BENZONATATE (Benzonatate) 100 MG PO TIDPRN MISCELLANEOUS (UNKNOWN MEDICATION) 1 STEVE TP DAILY CHOLECALCIFEROL (VITAMIN D3) (Vitamin D) 1 TAB PO DAILY Ubidecarenone (Co Q10) 100 MG PO DAILY Dofetilide 0.125 MCG PO Q12 Polyethylene Glycol 3350 (Miralax) 17 GM PO DAILY Carmen-3 Fatty Acids (Carmen-3) 1,000 MG PO DAILY METHYLCELLULOSE 4000CPS (Methylcellulose) 1 POW NA DAILY Tolterodine Tartrate (Detrol La 2 Mg Capsule) 4 MG PO QHS Valsartan (Valsartan 160MG) 320 MG PO DAILY VIT E ACETATE/GLY/DIMETH/WATER (Eucerin Daily Replenishing Lot) 400 ML PO DAILY Vortioxetine Hydrobromide (Brintellix) 20 MG PO DAILY Furosemide (Lasix) 40 MG PO DAILYP PRN EXCESS FLUID NYSTATIN (Nystatin Susp 100,000 Units/Ml 60ML) 5 ML PO QID Gabapentin (Neurontin) 100 MG OR BID LEVOCETIRIZINE DIHYDROCHLORIDE (Levocetirizine Dihydrochloride) 5 MG PO DAILY Social Hx: Smoking HX Tobacco Yes Type Cigarettes Packs/day N/A Alcohol Alcohol: No Hx of Drug Use Drug Use? No Patient's support system is good Review of systems: Constitutional see HPI. Respiratory see HPI. Cardiovascular No chest pain, No edema, No palpitations Gastrointestinal/Abdominal no symptoms reported Genitourinary no symptoms reported. Musculoskeletal no symptoms reported. Neurological Yes: no symptoms reported. Exam: Lab data for last 24 hours: Laboratory Tests 04/18/17 1310: Creatine Kinase 26, CK-MB (CK-2) Rel Index 1.9, CK and CKMB Interp < 0.5, Troponin I < 0.02 04/18/17 0845: Lactic Acid 1.5 04/18/17 0845: Creatine Kinase 27, CK-MB (CK-2) Rel Index 1.9, CK and CKMB Interp < 0.5, Troponin I < 0.02 04/18/17 0845: B-Natriuretic Peptide 221 H 04/18/17 0845: Sodium 139, Potassium 4.1, Chloride 105, Carbon Dioxide 27, BUN 16, Creatinine 0.8, Estimated Creat Clear 69, Estimated GFR (MDRD) 69, Glucose 113 H, Calcium 9.9, Total Bilirubin 0.8, AST 16, ALT 21, Alkaline Phosphatase 121 H, Total Protein 7.5, Albumin 3.6, Globulin 3.9 H, Albumin/Globulin Ratio 0.9 L, WBC 10.3, RBC 4.31, Hgb 12.9, Hct 39.6, MCV 92.0, RDW 13.0, Plt Count 204, MPV 8.7, Gran % 83.4 H, Gran # 8.6 H, Lymphocytes % 8.0 L, Monocytes % 6.8, Eosinophils % 1.5, Basophils % 0.3, Lymphocytes # 0.8, Monocytes # 0.7, Eosinophils # 0.2, Basophils # 0.0, PUBS MCHC 32.3, MCH 29.7 Microbiology 04/18 845 BLOOD: Anaerobic Blood Culture - RECD 04/18 845 BLOOD: Aerobic Blood Culture - RECD 04/18 845 BLOOD: Anaerobic Blood Culture - RECD 04/18 845 BLOOD: Aerobic Blood Culture - RECD Admission vital signs: 1ST Vital Signs Result Date Time Pulse Ox 91 04/18 825 B/P 199/91 04/18 825 Temp 98.5 04/18 825 Pulse 82 04/18 825 Resp 26 04/18 825 O2 Delivery ROOM AIR 04/18 1210 O2 Flow Rate 2 04/18 121 Exam General appearance: alert, active, awake, no acute distress Eyes: anicteric Neck: no carotid bruit, no JVD Cardiovascular: regular rate & rhythm Respiratory: on oxygen, diminished breath sounds, wheezing (end expiratory) ABD: soft, no tenderness Extremities: moves all, no peripheral edema Skin: intact Neuro: alert, 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 Pleural effusion 2. Acute bronchospasm Plan: 1. Start Solu-Medrol 60 mg every 8 hours, DuoNeb nebs every 6 hours 2. Patient given IV Lasix in the emergency department this morning. Echocardiogram is pending 3. Home medications will be ordered 4. Repeat chest x-ray in the morning along with complete blood count. 5. Upper respiratory PCR panel this evening at 8180
[2017-04-18 18:09] LABS: CORONAVIRUS 229E NOT DETECTED (NOT DETECTE); CORONAVIRUS HKU 1 NOT DETECTED (NOT DETECTE); CORONAVIRUS NL63 NOT DETECTED (NOT DETECTE); CORONAVIRUS OC43 NOT DETECTED (NOT DETECTE); RHINOVIRUS/ENTEROVIRUS NOT DETECTED (NOT DETECTE)
[2017-04-18 20:15] VITALS: BP 126/61
[2017-04-18 20:45] VITALS: BP 126/61
--- NOTE | 2017-04-18 21:03 | RADIOLOGY REPORT PS360 ---
PROCEDURE: 2-D M-mode and color Doppler study INDICATIONS FOR THE TEST: Chest pain COPD Heart Murmur+ Tobacco Smoking Palpitations Fatigue Syncope Edema Hypertension+Diabetes Mellitus Rheumatic Fever+ SOB+HOOVER Obesity Hyperlipidemia Family History HD+ Additional History Hx of AFib PATIENT INFORMATION HEIGHT: 62 WEIGHT: 172 GENDER: Female B/P: 165/96 2-D/M-MODE INTERPRETATION: 2-D MEASUREMENTS OBSERVED VALUES IN CMS Right Ventricular Dimension (RVDd) 2.3 Interventricular Septum (Thickness)(IVsd) 1.3 Left Ventricular Internal Dimensions(LVIDd) 4.8 Left Ventricular Posterior Wall (Thickness)(LVPWd) 0.8 Aortic Root 2.8 Aortic Cusp Separation 2.0 Left Atrial Dimensions (LAD) 4.2 2D 1. Left atrium is moderately enlarged, left ventricle is normal size, there is mild concentric left ventricular hypertrophy, visually estimated ejection fraction approximately 55% with no obvious regional wall motion abnormality. 2. The right atrium is mildly enlarged, right ventricle is normal size and contractility, there is a pacemaker lead seen in the right atrium and right ventricle. 3. The aortic valve is thickened and calcified leaflet continue to display mobility. 4. The mitral and tricuspid valve leaflets are minimally thickened. 5. The pulmonic valve is poorly visualized. 6. No significant pericardial effusion noted. DOPPLER INTERROGATION: Doppler interrogation of the aortic, mitral and tricuspid valvular presence of moderate aortic, mild mitral and tricuspid regurgitation, calculated right ventricular systolic pressure 58 mmHg consistent with moderate pulmonary hypertension. CONCLUSION: 1. Moderately enlarged atrium, normal left ventricular size, mild concentric left ventricular hypertrophy, visually estimated ejection fraction 55% with no obvious regional wall motion abnormality. 2. Moderate aortic, mild mitral and tricuspid regurgitation, calculated right ventricular systolic pressure 58 mm somewhat poorly consistent with moderate pulmonary hypertension. 3. No significant pericardial effusion noted.
[2017-04-19 00:15] VITALS: BP 134/58
[2017-04-19 03:51] VITALS: BP 137/69
--- NOTE | 2017-04-19 06:38 | RADIOLOGY REPORT PS360 ---
CHEST(2 VIEWS-NOT PORTABLE) HISTORY: Follow-up pleural effusion pleural effusions ORDERING PHYSICIAN: Emiliano Alfredo MD PATIENT AGE: 81 years COMPARISON: 04/18/2017 FINDINGS: No change cardiac pacemaker device. There are small bilateral pleural effusions once again noted and appears very slightly larger. Improved right basilar atelectasis. Persistent left basilar atelectasis and/or infiltrate slightly worse. Normal heart size. COPD. No acute bony anomalies. IMPRESSION: 1. Small bilateral pleural effusions slightly larger. 2. Persistent mild left basilar atelectasis or infiltrate with COPD
--- NOTE | 2017-04-19 07:11 | ACUTE CARE PROGRESS NOTE (QUA) ---
Progress Notes Subjective Date 04/19/17 Time 0709 Note Patient has no complaints this morning. She feels better than yesterday evening. She feels like she is breathing easier. She is in no distress. Lungs are clear this morning. Heart has a regular rate and rhythm. Abdomen is soft and nontender. Extremities are without edema. Chest x-ray was reviewed Removed patient's supplemental oxygen this morning and see if she can maintain room air sats. Encouraged to ambulate. May be discharged later today if she can maintain O2 sats. Continue steroids and aerosols for now Objective Findings Last VS-Temp:97.7 B/P:137/69 Pulse:70 Resp:18 SaO2:96 OXYGEN Last weight lbs:175 oz:5 K.52 Method:Bed Scales Laboratory Tests 04/18/175: Creatine Kinase 43, CK-MB (CK-2) Rel Index 1.2, CK and CKMB Interp < 0.5, Troponin I < 0.02 04/18/17 1800: Chlamy pneum (TEM-PCR) NOT DETECTED, Adenovirus (PCR) NOT DETECTED, B. pertussis DNA (PCR) NOT DETECTED, Coronavirus OC43 (PCR) NOT DETECTED, Coronavirus HKU1 ( PCR) NOT DETECTED, Coronavirus 229E (PCR) NOT DETECTED, Coronavirus NL63 (PCR) NOT DETECTED, Human Metapneumovir PCR NOT DETECTED, Influenza A (H1) PCR NOT DETECTED, Influ A (H1N1/09) PCR NOT DETECTED, Influenza A (H3) PCR NOT DETECTED, Influenza Type A (PCR) NOT DETECTED, Influenza Type B (PCR) NOT DETECTED, M. pneumoniae (PCR) NOT DETECTED, Parainfluenza 1 (PCR) NOT DETECTED, Parainfluenza 2 (PCR) NOT DETECTED, Parainfluenza 3 (PCR) NOT DETECTED, Parainfluenza 4 (PCR) NOT DETECTED, RSV (PCR) NOT DETECTED, Entero/Rhino (PCR) NOT DETECTED 04/18/17 1310: Creatine Kinase 26, CK-MB (CK-2) Rel Index 1.9, CK and CKMB Interp < 0.5, Troponin I < 0.02 04/18/17 0845: Lactic Acid 1.5 04/18/17 0845: Creatine Kinase 27, CK-MB (CK-2) Rel Index 1.9, CK and CKMB Interp < 0.5, Troponin I < 0.02 04/18/17 0845: B-Natriuretic Peptide 221 H 04/18/17 0845: Sodium 139, Potassium 4.1, Chloride 105, Carbon Dioxide 27, BUN 16, Creatinine 0.8, Estimated Creat Clear 69, Estimated GFR (MDRD) 69, Glucose 113 H, Calcium 9.9, Total Bilirubin 0.8, AST 16, ALT 21, Alkaline Phosphatase 121 H, Total Protein 7.5, Albumin 3.6, Globulin 3.9 H, Albumin/Globulin Ratio 0.9 L, WBC 10.3, RBC 4.31, Hgb 12.9, Hct 39.6, MCV 92.0, RDW 13.0, Plt Count 204, MPV 8.7, Gran % 83.4 H, Gran # 8.6 H, Lymphocytes % 8.0 L, Monocytes % 6.8, Eosinophils % 1.5, Basophils % 0.3, Lymphocytes # 0.8, Monocytes # 0.7, Eosinophils # 0.2, Basophils # 0.0, PUBS MCHC 32.3, MCH 29.7 Microbiology 04/18 845 BLOOD: Anaerobic Blood Culture - RECD 04/18 845 BLOOD: Aerobic Blood Culture - RECD 04/18 845 BLOOD: Anaerobic Blood Culture - RECD 04/18 845 BLOOD: Aerobic Blood Culture - RECD Assessment/Plan Problem List 1. Pleural effusion 2. Acute bronchospasm Patient condition Improving Plan: continue current care This inpt stay is expected to cross 2 MNs from start of care No at 0710
[2017-04-19 08:23] VITALS: BP 125/62
[2017-04-19 09:15] VITALS: BP 125/62
[2017-04-19] MEDS ORDERED: VALSARTAN320 MG PO (10:58)
[2017-04-19] MEDS ORDERED: TOLTERODINE TART4 MG PO (10:59)
[2017-04-19] MEDS ORDERED: METOCLOPRAMIDE H5 MG PO (11:00)
[2017-04-19] MEDS ORDERED: BRINTELLIX5 MG PO (11:03)
[2017-04-19 12:00] VITALS: BP 127/59
[2017-04-19] MEDS ORDERED: MEDROL DOSEPAK4 MG PO (12:02)
[2017-04-19] MEDS ORDERED: VENTOLIN H0.09 MG/AC IH (12:04)
[2017-04-19 13:52] VITALS: BP 127/59
--- NOTE | 2017-04-21 07:39 | Discharge Summary ---
Demographics Admit date: 04/18/17 Discharge date: 04/19/17 Discharge diagnoses Problem List 1. Chronic obstructive pulmonary disease with (acute) exacerbation 2. Pleural effusion 3. Acute bronchospasm History of present illness History of present illness 81-year-old female presented to the emergency department this morning after repeated episodes of dyspnea and wheezing over the weekend. Patient has a history of obstructive airway disease for which she uses Dulera and reports repeated wheezing over the weekend that would respond to her Dulera. She does not have a rescue inhaler. This morning she had recurrence of wheezing along with shortness of breath especially with ambulation and sought treatment in the ER. She endorsed additional symptoms of cough with clear sputum production body aches and chills but no fevers. Patient was worked up and felt to have a combination of congestive heart failure as well as possible pneumonia and has been admitted for diuresis and monitoring. Patient has a personal history of atrial fibrillation. Last known cardiac workup was in the last calendar year and patient had a normal ejection fraction. Patient was admitted and underwent repeat echocardiography which showed stable ejection fraction. She continued complaint of shortness of breath and on examination had expiratory wheezes. Patient uses Dulera as an outpatient but does not have a rescue inhaler. Patient was started on steroids as well as duo nebs. Within 24 hours her bronchospasm had resolved and so had her dyspnea. She was able to ambulate without any shortness of breath. She was discharged home on the . Patient will follow-up in my office on April 22. Medications Medications: Discharge meds are as noted. Follow up Follow up in office in: 3 DAYS with: Emiliano Alfredo MD at 0722
== END 2017-04-19 13:45 | disposition home or self-care (01) ==
LOC: ER 08:21 → 2ND 10:59 → ER 10:59 → 2ND 11:06
PROVIDERS: Emergency Medicine; Family Medicine
DX: J44.1 Chronic obstructive pulmonary disease with (acute) exacerbation (principal); J90 Pleural effusion, not elsewhere classified; J98.01 Acute bronchospasm; F17.210 Nicotine dependence, cigarettes, uncomplicated; Z79.01 Long term (current) use of anticoagulants; I48.91 Unspecified atrial fibrillation; Z79.899 Other long term (current) drug therapy; Z95.5 Presence of coronary angioplasty implant and graft; Z95.0 Presence of cardiac pacemaker; I10 Essential (primary) hypertension; J45.909 Unspecified asthma, uncomplicated; I25.2 Old myocardial infarction; Z83.3 Family history of diabetes mellitus; Z82.49 Family history of ischemic heart disease and other diseases of the circulatory system; Z83.49 Family history of other endocrine, nutritional and metabolic diseases; Z80.9 Family history of malignant neoplasm, unspecified; Z88.3 Allergy status to other anti-infective agents; Z88.5 Allergy status to narcotic agent; Z88.0 Allergy status to penicillin; Z88.2 Allergy status to sulfonamides
CPT/HCPCS: G0378

== ENCOUNTER → 2017-05-03 | Outpatient (CLI) | payer MEDICARE ==
[~2017-05-03] MED LIST changes: +BENZONATATE100 MG PO; +BRINTELLIX20 MG PO; +BRINTELLIX5 MG PO; +CO Q10100 MG PO; +D-10001 TAB PO; +DETROL LA4 MG PO; +DOFETILIDE125 MCG PO; +ELIQUIS5 MG PO; +EUCERIN DAILY400 ML PO; +MEDROL DOSEPAK4 MG PO; +METHYLCELLULOSE; +METOCLOPRAMIDE H5 MG PO; +METOPROLOL TAR100 MG PO; +MIRALAX17 GM/PACK PO; +OMEGA-31000 M2 PO; +OMEPRAZOLE40 MG PO; +TOLTERODINE TART4 MG PO; +VALSARTAN160 MG PO; +VALSARTAN320 MG PO; +VENTOLIN H0.09 MG/AC IH
[2017-05-03 16:44] LABS: HEMOGLOBIN 12.4 g/dL (12.2-16.2); LYMPH # 1.3 K/mm3 (0.7-4.5); LYMPH % 11.7 % (10-50.0)
[2017-05-03 17:10] LABS: BUN 16 mg/dL (7-18)
[2017-05-03 17:15] LABS: GFR (ESTIMATED) 48 ML/MIN (59-)
--- NOTE | 2017-05-03 17:15 | RADIOLOGY REPORT PS360 ---
CHEST(2 VIEWS-NOT PORTABLE) HISTORY: SHORTNESS OF BREATH ORDERING PHYSICIAN: Aura DAVE PATIENT AGE: 81 years COMPARISON: 04/19/2017 FINDINGS: Normal heart size. Tripolar pacemaker is present as before. No evidence of CHF. There are some mild atelectatic changes in the left mid and lower lung zone. Pericardial fat pad on the left. Mild degenerative changes thoracic spine. Small bilateral effusions have resolved since a previous exam IMPRESSION:. 1. Resolved bilateral effusions. 2. Minimal left-sided atelectatic change
== END ==
LOC: LAB 16:09
PROVIDERS: Nurse Practitioner Family
DX: R63.5 Abnormal weight gain (principal); R06.02 Shortness of breath; I50.9 Heart failure, unspecified